=== PATIENT | female | born 1935 | race Asian ===

== ENCOUNTER 2017-01-29 01:30 | Observation (INO) | payer MEDICARE ==
[2017-01-29] MEDS ORDERED: IBUPROFEN 600 MG TABLET PO ONE (02:31)
[2017-01-29] MEDS ORDERED: NORMAL SALINE 1000 ML 1,000 ML IV ONE (02:31)
[2017-01-29 02:38] LABS: ABSOLUTE LYMPHOCYTES (AUTO) 1.3 10^3/uL (0.5-4.7); ABSOLUTE NEUT (AUTO) 9.1 10^3/uL (1.7-8.2); BASOPHILS % (AUTO) 0.4 % (0-2); EOSINOPHILS % (AUTO) 0.1 % (0-6); HEMATOCRIT 39.7 % (36.0-47.0); HEMOGLOBIN 13.8 g/dL (12.0-15.5); HGB HCT DIFFERENCE 1.7; LYMPHOCYTES % (AUTO) 11.5 % (13-45); MEAN CORPUSCULAR HEMOGLOBIN 32.8 pg (27.0-33.4); MEAN CORPUSCULAR HGB CONC 34.8 g/dL (32.0-36.0); MEAN CORPUSCULAR VOLUME 94 fl (80-97); MONOCYTES % (AUTO) 8.7 % (3-13); RED BLOOD COUNT 4.22 10^6/uL (3.72-5.28); RED CELL DISTRIBUTION WIDTH 12.9 % (11.5-14.0); SEGMENTED NEUTROPHILS % (AUTO) 79.3 % (42-78); WHITE BLOOD COUNT 11.5 10^3/uL (4.0-10.5)
[2017-01-29 02:46] LABS: ANION GAP 13 (5-19); BLOOD UREA NITROGEN 14 mg/dL (7-20); CALCIUM 9.4 mg/dL (8.4-10.2); CARBON DIOXIDE 25 mmol/L (22-30); CHLORIDE 101 mmol/L (98-107); CREATININE RESULT 0.65 mg/dL (0.52-1.25); GLUCOSE 192 mg/dL (75-110); SODIUM 138.5 mmol/L (137-145)
--- NOTE | 2017-01-29 02:59 | RADIOLOGY REPORT (SQ) ---
EXAM DESCRIPTION: CHEST SINGLE VIEW COMPLETED DATE/TIME: 01/29/2017 2:46 am REASON FOR STUDY: weakness COMPARISON: 09/11/2014. CT, 06/01/2016. EXAM PARAMETERS: NUMBER OF VIEWS: One view. TECHNIQUE: Single frontal radiographic view of the chest acquired. RADIATION DOSE: NA LIMITATIONS: None. FINDINGS: LUNGS AND PLEURA: Moderate lung volumes. Mild interstitial markings. Small chronic blunt ing of the right costophrenic angle. MEDIASTINUM AND HILAR STRUCTURES: No masses. Contour normal. HEART AND VASCULAR STRUCTURES: Heart normal in size. Normal vasculature. BONES: No acute findings. HARDWARE: None in the chest. OTHER: No other significant finding. IMPRESSION: No acute cardiopulmonary findings. TECHNICAL DOCUMENTATION: JOB ID: [id number]
--- NOTE | 2017-01-29 03:10 | ER Document Report ---
ED General - General Chief Complaint: Pain All Over Stated Complaint: BODY ACHES Time Seen by Provider: 01/29/17 02:25 Notes: 81-year-old female with dementia and arthritis presents brought in by her son for weakness. He states that normally despite her dementia she is able to do laundry sometimes cook but has had drooling appetite over the past few months. This morning we left the house at 9 AM she was on the couch. When he got back at midnight she was on the couch and when he asked, she told him she had not gotten up at all to go to the bathroom or eat. She tells me that food is in appetizing. She does not complain of pain although he said that she was complaining of pain when getting off the couch. He said that she was too weak to stand up today. TRAVEL OUTSIDE OF THE [place] IN LAST 30 DAYS: No - Related Data Allergies/Adverse Reactions: No Known Allergies Allergy (Verified 01/29/17 02:00) Past Medical History - General Information source: Relative - Social History Smoking Status: Never Smoker Drug Abuse: None Family History: Arthritis, Reviewed & Not Pertinent Patient has suicidal ideation: No Patient has homicidal ideation: No - Past Medical History Cardiac Medical History: Denies: Hx Heart Attack, Hx Hypertension Pulmonary Medical History: Denies: Hx Asthma Neurological Medical History: Denies: Hx Cerebrovascular Accident, Hx Seizures Endocrine Medical History: Denies: Hx Graves' Disease, Hx Hyperthyroidism, Hx Hypothyroidism Renal/ Medical History: Denies: Hx End Stage Renal Disease, Hx Kidney Stones, Hx Peritoneal Dialysis GI Medical History: Denies: Hx Hepatitis, Hx Hiatal Hernia, Hx Ulcer Musculoskeltal Medical History: Reports Hx Arthritis - fingers, Denies Hx Fibromyalgia, Denies Hx Muscular Dystrophy, Reports Hx Musculoskeletal Deformity , Reports Hx Musculoskeletal Trauma Traumatic Medical History: Reports: Hx Fractures - as teenager Infectious Medical History: Denies: Hx Hepatitis Past Surgical History: Reports: Hx Orthopedic Surgery - left hip replacement. Denies: Hx Appendectomy, Hx Bowel Surgery, Hx Section, Hx Cholecystectomy, Hx Coronary Artery Bypass Graft, Hx Gastric Bypass Surgery, Hx Herniorrhaphy, Hx Hysterectomy, Hx Mastectomy, Hx Open Heart Surgery, Hx Pacemaker, Hx Tonsillectomy, Hx Tubal Ligation - Immunizations Hx Diphtheria, Pertussis, Tetanus Vaccination: Yes Review of Systems - Review of Systems Notes: REVIEW OF SYSTEMS GEN: Denies fever, chills, weight loss generalized weakness and loss of appetite. ENT: Denies sore throat, nasal discharge, ear pain EYES: Denies blurry vision, eye pain, discharge CV: Denies chest pain, palpitations, edema RESP: Denies cough, shortness of breath, wheezing GI: Denies abdominal pain, nausea, vomiting, diarrhea MSK: Denies joint pain/swelling, edema, SKIN: Denies rash, skin lesions LYMPH: Denies swollen glands/lymph nodes NEURO: Denies headache, focal weakness or numbness, dizziness PSYCH: Denies depression, suicidal or homicidal ideation PHYSICAL EXAMINATION General: No acute distress, well-nourished Head: Atraumatic, normocephalic ENT: Mouth normal, oropharynx moist, no exudates or tonsillar enlargement Eyes: Conjunctiva normal, pupils equal, lids normal Neck: No JVD, supple, no guarding CVS: Normal rate, regular rhythm, no murmurs Resp: No resp distress, equal and normal breath sounds bilaterally GI: Nondistended, soft, no tenderness to palpation, no rebound or guarding Ext: Upper and lower extremities at all joints except for the right fourth proximal interphalangeal joint which is erythematous and swollen, with pain on range of motion. Back: No CVA or midline TTP Skin: No rash, warm Lymphatic: No lymphadeopathy noted Neuro: Awake, alert. Face symmetric. GCS 15. Pronator drift. Physical Exam - Vital signs Vitals: Temp Pulse Resp BP Pulse Ox 98.4 F 88 20 169/63 H 95 01/29/17 02:00 01/29/17 02:00 01/29/17 02:00 01/29/17 02:00 01/29/17 02:00 Course - Re-evaluation Re-evalutation: 01/29/17 02:33 81-year-old female presents with nonspecific generalized weakness for 1 day. She does not appear significantly dehydrated. She has no focal neurologic deficits and appears to be at her neurologic baseline as well as cognitive baseline per her son. She does have a slightly inflamed right third proximal interphalangeal joint the diagnoses of which could reflect acute arthritis including gout or other inflammatory arthritis. This is less likely to be septic arthritis given the small nature of the joint and the patient's lack of fever. I also do not think that this is the cause of her generalized weakness. She could be having worsening dementia or confusion from a UTI or other infection but I will rule out metabolic causes as well. - Vital Signs Vital signs: Temp Pulse Resp BP Pulse Ox 98.4 F 88 12 169/63 H 93 01/29/17 02:00 01/29/17 02:00 01/29/17 02:19 01/29/17 02:00 01/29/17 02:19 - Laboratory Result Diagrams: 01/29/17 02:20 01/29/17 02:20 Laboratory results interpreted by me: 01/29/17 01/29/17 01/29/17 02:20 02:20 04:00 WBC 11.5 H Seg Neutrophils % 79.3 H Lymphocytes % 11.5 L Absolute Neutrophils 9.1 H Glucose 192 H Urine Ketones 20 H Urine Blood SMALL H Ur Leukocyte Esterase SMALL H - EKG Interpretation by Me EKG shows normal: Sinus rhythm Rate: Normal - No acute STST or Twave changes noted Discharge - Discharge Clinical Impression: Weakness Condition: Good Admitting Provider: Hospitalist Unit Admitted: Telemetry Referrals: DOLLY LÓPEZ MD [Primary Care Provider] - Follow up as needed
[2017-01-29] MEDS ORDERED: CEPHALEXIN 500 MG CAPSULE PO ONE (03:55)
[2017-01-29 04:12] LABS: APPEARANCE,URINE SLIGHTLY-CLOUDY; BILIRUBIN,URINE NEGATIVE (NEGATIVE); GLUCOSE, URINE NEGATIVE (NEGATIVE); KETONES,URINE 20 mg/dL (NEGATIVE); LEUKOCYTE ESTERASE,URINE SMALL (NEGATIVE); NITRITE,URINE NEGATIVE (NEGATIVE); PROTEIN,URINE NEGATIVE (NEGATIVE); URINE SPECIFIC GRAVITY 1.018; UROBILINOGEN,URINE NEGATIVE mg/dL (<2.0)
[2017-01-29 05:01] LABS: CREATINE KINASE MB 1.07 ng/mL (<4.55)
[2017-01-29 05:02] LABS: TROPONIN I < 0.012 ng/mL
[2017-01-29] MEDS ORDERED: ACETAMINOPHEN 325 MG TABLET PO PRN (06:30)
[2017-01-29] MEDS ORDERED: ENALAPRIL MALEATE 2.5 MG TABLET PO SCH (06:45)
[2017-01-29] MEDS ORDERED: ENALAPRIL MALEATE 2.5 MG TABLET PO ONE (07:00)
--- NOTE | 2017-01-29 07:49 | EKG REPORT ---
SEVERITY:- BORDERLINE ECG - SINUS RHYTHM BORDERLINE T ABNORMALITIES, DIFFUSE LEADS OLD ANTEROSEPTAL TX : Confirmed by: Fred Quiles MD 29-Jan-2017 07:48:45
[2017-01-29] MEDS ORDERED: PREDNISONE 20 MG TABLET PO SCH (10:00)
[2017-01-29] MEDS ORDERED: ASPIRIN 81 MG TABLET, ENT COATED PO SCH (10:00)
[2017-01-29] MEDS: DOCUSATE SODIUM 100 MG CAPSULE PO SCH ×2 (10:22→18:29)
--- NOTE | 2017-01-29 14:27 | PDOC PROGRESS REPORT ---
Subjective Progress Note for:: 01/29/17 Subjective:: Reports that her weakness has improved. Physical Exam Vital Signs: Temp Pulse Resp BP Pulse Ox 97.8 F 69 15 134/53 H 99 01/29/17 13:23 01/29/17 13:23 01/29/17 13:23 01/29/17 13:23 01/29/17 13:23 Intake & Output 01/28/17 01/29/17 01/30/17 06:59 06:59 06:59 Weight 54.43 kg General appearance: PRESENT: no acute distress Eye exam: PRESENT: conjunctiva pink, EOMI, PERRLA. ABSENT: scleral icterus Ear exam: PRESENT: normal external ear exam Mouth exam: PRESENT: moist, tongue midline Neck exam: ABSENT: JVD Respiratory exam: PRESENT: clear to auscultation precious. ABSENT: rales, rhonchi, wheezes Cardiovascular exam: PRESENT: RRR. ABSENT: diastolic murmur, rubs, systolic murmur GI/Abdominal exam: PRESENT: normal bowel sounds, soft. ABSENT: distended, guarding, mass, organolmegaly, rebound, tenderness Extremities exam: ABSENT: calf tenderness, clubbing, pedal edema Neurological exam: PRESENT: alert, awake, oriented to person, oriented to place , oriented to time, oriented to situation, CN II-XII grossly intact. ABSENT: motor sensory deficit Psychiatric exam: PRESENT: appropriate affect Skin exam: PRESENT: dry, intact, warm. ABSENT: cyanosis, rash Results Impressions: Chest X-Ray 01/29/17 02:26 IMPRESSION: No acute cardiopulmonary findings. Assessment & Plan - Diagnosis (2) Weakness Is this a current diagnosis for this admission?: YesPlan: The related to the recent increase in Aricept. Will hold and see how she does over the next 24 hours. - Time Time Spent with patient: 25-34 minutes
[2017-01-29] MEDS: HEPARIN SOD (PORCINE) 5,000 UNIT/ML 1 ML SYRINGE SUBCUT SCH ×2 (18:22→21:55)
[2017-01-29] MEDS: ENALAPRIL MALEATE 2.5 MG TABLET PO SCH (18:29)
[2017-01-30] MEDS: ENALAPRIL MALEATE 2.5 MG TABLET PO SCH (05:18)
[2017-01-30] MEDS: HEPARIN SOD (PORCINE) 5,000 UNIT/ML 1 ML SYRINGE SUBCUT SCH (05:18)
[2017-01-30 05:38] LABS: MEAN CORPUSCULAR VOLUME 94 fl (80-97)
[2017-01-30 05:50] LABS: ABSOLUTE LYMPHOCYTES (AUTO) 2.2 10^3/uL (0.5-4.7); ABSOLUTE MONOCYTES (AUTO) 0.8 10^3/uL (0.1-1.4); ABSOLUTE NEUT (AUTO) 6.5 10^3/uL (1.7-8.2); BASOPHILS % (AUTO) 0.5 % (0-2); EOSINOPHILS % (AUTO) 0.5 % (0-6); HEMATOCRIT 33.6 % (36.0-47.0); HGB HCT DIFFERENCE 2.1; MEAN CORPUSCULAR HEMOGLOBIN 33.3 pg (27.0-33.4); MEAN CORPUSCULAR HGB CONC 35.5 g/dL (32.0-36.0); MONOCYTES % (AUTO) 8.4 % (3-13); RED BLOOD COUNT 3.58 10^6/uL (3.72-5.28); RED CELL DISTRIBUTION WIDTH 12.8 % (11.5-14.0); SEGMENTED NEUTROPHILS % (AUTO) 67.6 % (42-78); WHITE BLOOD COUNT 9.6 10^3/uL (4.0-10.5)
[2017-01-30 05:52] LABS: HEMOGLOBIN 11.9 g/dL (12.0-15.5)
[2017-01-30 06:07] LABS: ANION GAP 10 (5-19)
[2017-01-30 06:19] LABS: ALANINE AMINOTRANSFERASE 80 U/L (9-52); ALBUMIN 3.2 g/dL (3.5-5.0); ALKALINE PHOSPHATASE 118 U/L (38-126); ASPARTATE AMINO TRANSFERASE 84 U/L (14-36); BILIRUBIN,DIRECT 0.4 mg/dL (0.0-0.4); BILIRUBIN,TOTAL 0.7 mg/dL (0.2-1.3); BLOOD UREA NITROGEN 21 mg/dL (7-20); CALCIUM 8.7 mg/dL (8.4-10.2); CARBON DIOXIDE 24 mmol/L (22-30); CHLORIDE 106 mmol/L (98-107); CREATININE RESULT 0.61 mg/dL (0.52-1.25); GLUCOSE 152 mg/dL (75-110); POTASSIUM 3.8 mmol/L (3.6-5.0); SODIUM 139.7 mmol/L (137-145); TOTAL PROTEIN 6.1 g/dL (6.3-8.2)
[2017-01-30 08:46] VITALS: BP 134/53
--- NOTE | 2017-01-30 13:10 | PDOC DISCHARGE SUMMARY ---
General - Admit/Disc Date/PCP Admission Date/Primary Care Provider: 01/29/17 06:30 DOLLY LÓPEZ MD Discharge Date: 01/30/17 - Discharge Diagnosis (1) Dementia Is this a current diagnosis for this admission?: Yes (2) Weakness Is this a current diagnosis for this admission?: YesSummary: [place] to probably be secondary to the increase in her Aricept. She reports that when she went from 5 to 10 mg her weakness started. Her Weakness has resolved. - Additional Information Resuscitation Status: Full Code Discharge Diet: Regular Discharge Activity: Activity As Tolerated Home Medications: Aspirin [Aspirin EC] 81 mg PO DAILY PRN 01/29/17 Multivitamin [Multivitamins] 1 each PO DAILY 01/29/17 Donepezil HCl [Aricept 5 mg Tablet] 5 mg PO QHS #0 01/30/17 Enalapril Maleate [Vasotec 2.5 mg Tablet] 5 mg PO DAILY #30 tablet 01/30/17 History of Present Illness History of Present Illness: ELAINA STODDARD is a 81 year old female that presented with her son to the emergency room. The patient had worsening weakness for several days prior to presentation. 2 days prior to her symptoms she had seen her primary care doctor and her Aricept was increased from 5-10 mg. Patient presented and had no acute focal findings. Her was stopped and she had resolution of her weakness. She started back on lower dose of Aricept. She does have significant dementia but lives with her son. The patient no evidence for any type of acute neurological event and is felt to most likely be related to her medications. Physical Exam Vital Signs: Temp Pulse Resp BP Pulse Ox 97.5 F 62 14 134/53 H 99 01/30/17 08:43 01/30/17 08:43 01/30/17 08:43 01/30/17 08:43 01/30/17 08:43 Intake & Output 01/29/17 01/30/17 01/31/17 06:59 06:59 06:59 Intake Total 1055 Balance 1055 Weight 55.3 kg General appearance: PRESENT: no acute distress Eye exam: PRESENT: conjunctiva pink. ABSENT: scleral icterus Mouth exam: PRESENT: moist, tongue midline Neck exam: ABSENT: JVD Respiratory exam: PRESENT: clear to auscultation precious. ABSENT: rales, rhonchi, wheezes Cardiovascular exam: PRESENT: RRR. ABSENT: diastolic murmur, rubs, systolic murmur GI/Abdominal exam: PRESENT: normal bowel sounds, soft. ABSENT: distended, guarding, mass, organolmegaly, rebound, tenderness Extremities exam: ABSENT: calf tenderness, clubbing, pedal edema Neurological exam: PRESENT: alert, awake, oriented to person, oriented to place , oriented to time, oriented to situation, CN II-XII grossly intact. ABSENT: motor sensory deficit Psychiatric exam: PRESENT: appropriate affect Skin exam: PRESENT: dry, intact, warm. ABSENT: cyanosis, rash Results Laboratory Results: 01/30/17 05:19 01/30/17 05:19 01/30/17 01/30/17 05:19 05:19 WBC 9.6 RBC 3.58 L Hgb 11.9 L Hct 33.6 L MCV 94 MCH 33.3 MCHC 35.5 RDW 12.8 Plt Count 179 Seg Neutrophils % 67.6 Lymphocytes % 23.0 Monocytes % 8.4 Eosinophils % 0.5 Basophils % 0.5 Absolute Neutrophils 6.5 Absolute Lymphocytes 2.2 Absolute Monocytes 0.8 Absolute Eosinophils 0.0 Absolute Basophils 0.0 Sodium 139.7 Potassium 3.8 Chloride 106 Carbon Dioxide 24 Anion Gap 10 BUN 21 H Creatinine 0.61 Est GFR ( Amer) > 60 Est GFR (Non-Af Amer) > 60 Glucose 152 H Calcium 8.7 Total Bilirubin 0.7 AST 84 H ALT 80 H Alkaline Phosphatase 118 Total Protein 6.1 L Albumin 3.2 L Impressions: Chest X-Ray 01/29/17 02:26 IMPRESSION: No acute cardiopulmonary findings. Qualifiers PATEINT BEING DISCHARGED WITH ANY OF THE FOLLOWING DIAGNOSIS?: No Plan Discharge Plan: Discharged home in stable condition. Will follow up with primary care doctor in 2 weeks. Time Spent: Less than 30 Minutes
== END 2017-01-30 09:06 | disposition home or self-care (01) ==
LOC: ER 01:30 → UNDOADMOB 04:39 → INTOOBSV 04:39 → EH 04:39 → 5 13:06
PROVIDERS: ADMIT Internal Medicine; ATTEND Internal Medicine
DX: R53.1 Weakness (principal); F03.90 Unspecified dementia, unspecified severity, without behavioral disturbance, psychotic disturbance, mood disturbance, and anxiety; M13.849 Other specified arthritis, unspecified hand; Z79.899 Other long term (current) drug therapy; Z79.82 Long term (current) use of aspirin; Z82.61 Family history of arthritis; Z96.642 Presence of left artificial hip joint
CPT/HCPCS: 93005; 99285; 96360; 36415 ×2; 82553; 82550; 84443; 85025 ×2; 85652; 80048; 80053; 81001; 84484; 83880; 71010; 93010; 97162; G0378 ×3; A9270 ×8; J1644 ×2; J7030; G8978; G8979; J3490; J7512

== ENCOUNTER → 2017-02-05 | Outpatient (CLI) | payer MEDICARE ==
[2017-02-05 17:16] LABS: ALANINE AMINOTRANSFERASE 81 U/L (9-52); ALBUMIN 4.2 g/dL (3.5-5.0); ALKALINE PHOSPHATASE 173 U/L (38-126); ASPARTATE AMINO TRANSFERASE 42 U/L (14-36); BILIRUBIN,DIRECT 0.4 mg/dL (0.0-0.4); BILIRUBIN,TOTAL 0.5 mg/dL (0.2-1.3); TOTAL PROTEIN 7.5 g/dL (6.3-8.2)
[2017-02-07 05:40] LABS: HEPATITIS C VIRUS AB <0.1 s/co ratio (0.0-0.9)
== END ==
LOC: OD 15:19
PROVIDERS: ATTEND Internal Medicine
DX: R74.8 Abnormal levels of other serum enzymes (principal); R63.0 Anorexia
CPT/HCPCS: 36415; 80076; 86317; 86803; 86804

== ENCOUNTER 2020-06-21 14:22 | Observation (INO) | payer MEDICARE ==
--- NOTE | 2020-06-21 14:35 | ER Document Report ---
ED Medical Screen (RME) - General Chief Complaint: Altered Mental Status Stated Complaint: ALTERED MENTAL STATUS Time Seen by Provider: 06/21/20 14:27 Primary Care Provider: DOLLY LÓPEZ MD [Primary Care Provider] - Follow up as needed Information source: Patient, Relative Notes: Patient family member states that he found her on the floor this morning and is uncertain how long she may have been on the floor. Patient got up and again fell this this morning. Patient with right knee pain. Family member states that she has been unable to bear weight today. He states that she was mildly confused and that her buttons were buttoned improperly today. Patient does have a history of Alzheimer's although answers questions appropriately in triage. I have greeted and performed a rapid initial assessment of this patient. A comprehensive ED assessment and evaluation of the patient, analysis of test results and completion of the medical decision making process will be conducted by additional ED providers. TRAVEL OUTSIDE OF THE [place] IN LAST 30 DAYS: No - Related Data Allergies/Adverse Reactions: No Known Allergies Allergy (Verified 01/29/17 02:00) Past Medical History - Past Medical History Cardiac Medical History: Denies: Hx Heart Attack, Hx Hypertension Pulmonary Medical History: Denies: Hx Asthma Neurological Medical History: Denies: Hx Cerebrovascular Accident, Hx Seizures Endocrine Medical History: Denies: Hx Graves' Disease, Hx Hyperthyroidism, Hx Hypothyroidism Renal/ Medical History: Denies: Hx End Stage Renal Disease, Hx Kidney Stones, Hx Peritoneal Dialysis GI Medical History: Denies: Hx Hepatitis, Hx Hiatal Hernia, Hx Ulcer Musculoskeltal Medical History: Reports Hx Arthritis, Denies Hx Fibromyalgia, Denies Hx Muscular Dystrophy, Reports Hx Musculoskeletal Deformity, Reports Hx Musculoskeletal Trauma, Denies Hx Systemic Lupus Erythematosus Traumatic Medical History: Reports: Hx Fractures - as teenager Infectious Medical History: Denies: Hx Hepatitis Past Surgical History: Reports: Hx Orthopedic Surgery - left hip replacement. Denies: Hx Appendectomy, Hx Bowel Surgery, Hx Section, Hx Cholecystectomy, Hx Coronary Artery Bypass Graft, Hx Gastric Bypass Surgery, Hx Herniorrhaphy, Hx Hysterectomy, Hx Mastectomy, Hx Open Heart Surgery, Hx Pacemaker, Hx Tonsillectomy, Hx Tubal Ligation - Immunizations Hx Diphtheria, Pertussis, Tetanus Vaccination: Yes Physical Exam - Extremities General lower extremity: Tender - Right knee joint tenderness - Neurological [place] Coma Scale Eye Opening: Spontaneous [place] Coma Scale Verbal: Oriented [place] Coma Scale Motor: Obeys Commands Karel Coma Scale Total: 15 Doctor's Discharge - Discharge Referrals: DOLLY LÓPEZ MD [Primary Care Provider] - Follow up as needed
--- NOTE | 2020-06-21 15:01 | RADIOLOGY REPORT (SQ) ---
EXAM DESCRIPTION: CT HEAD WITHOUT IMAGES COMPLETED DATE/TIME: 06/21/2020 2:51 pm REASON FOR STUDY: fall, epsode of confusion COMPARISON: 06/01/2016 TECHNIQUE: Axial images acquired through the brain without intravenous contrast. Images reviewed wi th bone, brain and subdural windows. Additional sagittal and coronal reconstructions were generated. Images stored on PACS. All CT scanners at this facility use dose modulation, iterative reconstruction, and/or weight based d osing when appropriate to reduce radiation dose to as low as reasonably achievable (ALARA). [facility]: Dose Right [facility]: CareDose [facility]: Dose Right [facility]: Teradose 4D [facility]: Smart [employer] RADIATION DOSE: CT Rad equipment meets quality standard of care and radiation dose reduction techniq ues were employed. CTDIvol: 53.2 mGy. DLP: 1070 mGy-cm.mGy. LIMITATIONS: None. FINDINGS: VENTRICLES: Prominent. CEREBRUM: No masses. No hemorrhage. No midline shift. Areas of low density in the white matter mos t likely due to chronic micro-vascular ischemic change. No evidence for acute infarction. CEREBELLUM: No masses. No hemorrhage. No alteration of density. No evidence for acute infarction. EXTRAAXIAL SPACES: Age-related involutional change. No fluid collections. No masses. ORBITS AND GLOBE: No intra- or extraconal masses. Normal contour of globe without masses. CALVARIUM: No fracture. PARANASAL SINUSES: No fluid or mucosal thickening. SOFT TISSUES: No mass or hematoma. OTHER: No other significant finding. IMPRESSION: CHRONIC CHANGES OF ATROPHY AND MICROVASCULAR ISCHEMIA. NO ACUTE PROCESS. EVIDENCE OF ACUTE STROKE: NO. COMMENT: Pertinent positive or negative findings of the imaging study reported as a CRITICAL EXAM joya CASTELLANOS NP at14:55 on 06/21/2020. Category of Critical Exam: Stroke alert. TECHNICAL DOCUMENTATION: JOB ID: [id number] Quality ID # [id number]: Final reports with documentation of one or more dose reduction techniques (e.g., Au tomated exposure control, adjustment of the mA and/or kV according to patient size, use of iterative reconstruction technique) 2010 [employer]- All Rights Reserved Reading location - IP/workstation name: [email or web address]
--- NOTE | 2020-06-21 15:16 | RADIOLOGY REPORT (SQ) ---
EXAM DESCRIPTION: HIP BILATERAL IMAGES COMPLETED DATE/TIME: 06/21/2020 3:08 pm REASON FOR STUDY: fall pelvic pain COMPARISON: None. NUMBER OF VIEWS: Two views TECHNIQUE: AP pelvis and additional frog-leg view of both hips. LIMITATIONS: None. FINDINGS: MINERALIZATION: Normal. HIPS: Prior total left hip arthroplasty. No acute fracture or dislocation. Joint space narrowing on the right with subchondral sclerosis. No acute fracture or dislocation. PELVIS AND SACRUM: No acute fracture or dislocation. No worrisome bone lesions. PUBIS AND ISCHIUM: No acute fracture. LOWER LUMBAR SPINE: Degenerative changes in the spine. SOFT TISSUES: Vascular calcification. OTHER: No other significant finding. IMPRESSION: Prior total left arthroplasty. Degenerative changes in the right hip with joint space n arrowing and subchondral sclerosis. No acute fracture or dislocation. TECHNICAL DOCUMENTATION: JOB ID: [id number] 2010 [employer]- All Rights Reserved Reading location - IP/workstation name: [email or web address]
--- NOTE | 2020-06-21 15:16 | RADIOLOGY REPORT (SQ) ---
EXAM DESCRIPTION: CHEST SINGLE VIEW IMAGES COMPLETED DATE/TIME: 06/21/2020 3:08 pm REASON FOR STUDY: fall, epsode of confusion COMPARISON: 09/11/2014 EXAM PARAMETERS: NUMBER OF VIEWS: One view. TECHNIQUE: Single frontal radiographic view of the chest acquired. RADIATION DOSE: NA LIMITATIONS: Low lung volumes. FINDINGS: LUNGS AND PLEURA: No opacities, masses or pneumothorax. No pleural effusion. MEDIASTINUM AND HILAR STRUCTURES: No masses. Contour normal. HEART AND VASCULAR STRUCTURES: Heart normal in size. Normal vasculature. BONES: No acute findings. HARDWARE: None in the chest. OTHER: No other significant finding. IMPRESSION: Negative chest allowing for low lung volumes. TECHNICAL DOCUMENTATION: JOB ID: [id number] 2010 [employer]- All Rights Reserved Reading location - IP/workstation name: [email or web address]
--- NOTE | 2020-06-21 15:17 | RADIOLOGY REPORT (SQ) ---
EXAM DESCRIPTION: KNEE RIGHT 4 VIEWS IMAGES COMPLETED DATE/TIME: 06/21/2020 3:08 pm REASON FOR STUDY: fall, r knee pain COMPARISON: None. NUMBER OF VIEWS: Four views. TECHNIQUE: AP, lateral, and both oblique radiographic images acquired of the right knee. LIMITATIONS: None. FINDINGS: MINERALIZATION: Normal. BONES: No acute fracture or dislocation. No worrisome bone lesions. JOINT: Joint space narrowing in all compartments. No joint effusion. SOFT TISSUES: Vascular calcification. OTHER: No other significant finding. IMPRESSION: Tricompartmental osteoarthritis. TECHNICAL DOCUMENTATION: JOB ID: [id number] 2010 [employer]- All Rights Reserved Reading location - IP/workstation name: [email or web address]
--- NOTE | 2020-06-21 15:19 | ER Document Report ---
ED General - General Chief Complaint: Altered Mental Status Stated Complaint: ALTERED MENTAL STATUS Time Seen by Provider: 06/21/20 14:27 Primary Care Provider: DOLLY LÓPEZ MD [EMERITUS] - Follow up as needed Mode of Arrival: Ambulatory Information source: Relative Cannot obtain history due to: Dementia Notes: 84-year-old female presents with her son who is concerned for increased confusion and multiple falls that occurred today. Patient has no complaints at this time. Son reports that the patient was found next to her bed 3 times today. He does report that he is Covid positive but she has had no symptoms. She he does report similar symptoms 6 months ago with a urinary tract infection. TRAVEL OUTSIDE OF THE [place] IN LAST 30 DAYS: No - HPI Onset: This morning Onset/Duration: Sudden Quality of pain: No pain Severity: None Similar symptoms previously: Yes Recently seen / treated by doctor: Yes - Related Data Allergies/Adverse Reactions: No Known Allergies Allergy (Verified 01/29/17 02:00) Home Medications: mirtazapine, memantine Past Medical History - General Information source: Patient, Relative - Social History Smoking Status: Former Smoker Chew tobacco use (# tins/day): No Frequency of alcohol use: None Drug Abuse: None Lives with: Family Family History: Arthritis, Reviewed & Not Pertinent - Past Medical History Cardiac Medical History: Denies: Hx Heart Attack, Hx Hypertension Pulmonary Medical History: Denies: Hx Asthma Neurological Medical History: Denies: Hx Cerebrovascular Accident, Hx Seizures Endocrine Medical History: Denies: Hx Graves' Disease, Hx Hyperthyroidism, Hx Hypothyroidism Renal/ Medical History: Denies: Hx End Stage Renal Disease, Hx Kidney Stones, Hx Peritoneal Dialysis GI Medical History: Denies: Hx Hepatitis, Hx Hiatal Hernia, Hx Ulcer Musculoskeletal Medical History: Reports Hx Arthritis, Denies Hx Fibromyalgia, Denies Hx Muscular Dystrophy, Reports Hx Musculoskeletal Deformity, Reports Hx Musculoskeletal Trauma, Denies Hx Systemic Lupus Erythematosus Traumatic Medical History: Reports: Hx Fractures - as teenager Infectious Medical History: Denies: Hx Hepatitis Past Surgical History: Reports: Hx Orthopedic Surgery - left hip replacement. Denies: Hx Appendectomy, Hx Bowel Surgery, Hx Section, Hx Cholecys tectomy, Hx Coronary Artery Bypass Graft, Hx Gastric Bypass Surgery, Hx Herniorrhaphy, Hx Hysterectomy, Hx Mastectomy, Hx Open Heart Surgery, Hx Pacemaker, Hx Tonsillectomy, Hx Tubal Ligation - Immunizations Hx Diphtheria, Pertussis, Tetanus Vaccination: Yes Review of Systems - Review of Systems -: Yes ROS unobtainable due to patient's medical condition Physical Exam - Vital signs Vitals: Temp 99.1 F 06/21/20 14:28 - Notes Notes: PHYSICAL EXAMINATION: GENERAL: Well-appearing, well-nourished and in no acute distress. HEAD: Atraumatic, normocephalic. EYES: Pupils equal round and reactive to light, extraocular movements intact, conjunctiva are normal. ENT: Nares patent, oropharynx clear without exudates. Moist mucous membranes. NECK: Normal range of motion, supple without lymphadenopathy LUNGS: Breath sounds clear to auscultation bilaterally and equal. No wheezes rales or rhonchi. HEART: Regular rate and rhythm without murmurs ABDOMEN: Soft, nontender, nondistended abdomen. No guarding, no rebound. No masses appreciated. Female : deferred Musculoskeletal: Normal range of motion, no pitting or edema. No cyanosis. mild swelling to left knee FROM NEUROLOGICAL: Cranial nerves grossly intact. Normal speech, normal gait. Normal sensory, motor exams. AOx2 PSYCH: Normal mood, normal affect. SKIN: Warm, Dry, normal turgor, no rashes or lesions noted. Course - Re-evaluation Re-evalutation: 06/21/20 16:52 Laboratory 06/21/20 06/21/20 06/21/20 15:43 15:43 15:43 WBC 8.7 RBC 4.15 Hgb 12.9 Hct 37.6 MCV 91 MCH 31.1 MCHC 34.4 RDW 13.0 Plt Count 215 Lymph % (Auto) Not Reportable [place] % (Auto) Not Reportable Eos % (Auto) Not Reportable Baso % (Auto) Not Reportable Absolute Neuts (auto) Not Reportable Absolute Lymphs (auto) Not Reportable Absolute Monos (auto) Not Reportable Absolute Eos (auto) Not Reportable Absolute Basos (auto) Not Reportable Total Counted 100 Seg Neutrophils % Not Reportable Seg Neuts % (Manual) 86 H Band Neutrophils % 2 L Lymphocytes % (Manual) 3 L Monocytes % (Manual) 9 Eosinophils % (Manual) 0 Basophils % (Manual) 0 Abs Neuts (Manual) 7.7 Abs Lymphs (Manual) 0.3 L Abs Monocytes (Manual) 0.8 Absolute Eos (Manual) 0.0 Abs Basophils (Manual) 0.0 Platelet Comment ADEQUATE RBC Morph Comment NORMO-CYTIC/CHROMIC PT 12.6 INR 0.92 APTT 30.3 Sodium 134.0 L Potassium 4.5 Chloride 97 L Carbon Dioxide 28 Anion Gap 9 BUN 13 Creatinine 0.58 Est GFR ( Amer) > 60 Est GFR (MDRD) Non-Af > 60 Glucose 176 H Calcium 9.1 Total Bilirubin 0.6 Direct Bilirubin 0.1 Neonat Total Bilirubin Not Reportable Neonat Direct Bilirubin Not Reportable Neonat Indirect Bili Not Reportable AST 106 H ALT 94 H Alkaline Phosphatase 136 H Creatine Kinase 430 H Troponin I Total Protein 8.1 Albumin 4.4 Urine Color Urine Appearance Urine pH Ur Specific [place] Urine Protein Urine Glucose (UA) Urine Ketones Urine Blood Urine Nitrite Urine Bilirubin Urine Urobilinogen Ur Leukocyte Esterase Urine WBC (Auto) Urine RBC (Auto) U Hyaline Cast (Auto) Urine Mucus (Auto) Urine Ascorbic Acid 06/21/20 06/21/20 15:43 16:10 WBC RBC Hgb Hct MCV MCH MCHC RDW Plt Count Lymph % (Auto) [place] % (Auto) Eos % (Auto) Baso % (Auto) Absolute Neuts (auto) Absolute Lymphs (auto) Absolute Monos (auto) Absolute Eos (auto) Absolute Basos (auto) Total Counted Seg Neutrophils % Seg Neuts % (Manual) Band Neutrophils % Lymphocytes % (Manual) Monocytes % (Manual) Eosinophils % (Manual) Basophils % (Manual) Abs Neuts (Manual) Abs Lymphs (Manual) Abs Monocytes (Manual) Absolute Eos (Manual) Abs Basophils (Manual) Platelet Comment RBC Morph Comment PT INR APTT Sodium Potassium Chloride Carbon Dioxide Anion Gap BUN Creatinine Est GFR ( Amer) Est GFR (MDRD) Non-Af Glucose Calcium Total Bilirubin Direct Bilirubin Neonat Total Bilirubin Neonat Direct Bilirubin Neonat Indirect Bili AST ALT Alkaline Phosphatase Creatine Kinase Troponin I < 0.012 Total Protein Albumin Urine Color YELLOW Urine Appearance SLIGHTLY-CLOUDY Urine pH 7.0 Ur Specific [place] 1.020 Urine Protein 100 H Urine Glucose (UA) NEGATIVE Urine Ketones 20 H Urine Blood NEGATIVE Urine Nitrite NEGATIVE Urine Bilirubin NEGATIVE Urine Urobilinogen NEGATIVE Ur Leukocyte Esterase NEGATIVE Urine WBC (Auto) 1 Urine RBC (Auto) 12 U Hyaline Cast (Auto) 3 Urine Mucus (Auto) MOD Urine Ascorbic Acid 40 H Chest X-Ray 06/21/20 14:31 IMPRESSION: Negative chest allowing for low lung volumes. Head CT 06/21/20 14:31 IMPRESSION: CHRONIC CHANGES OF ATROPHY AND MICROVASCULAR ISCHEMIA. NO ACUTE PROCESS. EVIDENCE OF ACUTE STROKE: NO. Hip X-Ray 06/21/20 14:31 IMPRESSION: Prior total left arthroplasty. Degenerative changes in the right hip with joint space narrowing and subchondral sclerosis. No acute fracture or dislocation. Knee X-Ray 06/21/20 14:31 IMPRESSION: Tricompartmental osteoarthritis. Temp Pulse Resp BP Pulse Ox 99.1 F 115 H 16 157/71 H 98 06/21/20 14:39 06/21/20 16:08 06/21/20 16:08 06/21/20 16:08 06/21/20 16:08 06/21/20 20:14 Hospitalist contacted for admission. We will see the patient at bedside 06/21/20 21:35 84-year-old female presents with her son who is concerned for increased confusion and multiple falls that occurred today. Patient has no complaints at this time. Son reports that the patient was found next to her bed 3 times today. He does report that he is Covid positive but she has had no symptoms. She he does report similar symptoms 6 months ago with a urinary tract infection. Patient tachycardic upon arrival but afebrile and not hypoxic. Patient found to be Covid positive. No evidence of urinary tract infection. Attempted discharge but when patient attempted to ambulate she was not able to. [facility]osp [facility] has accepted the patient for observation. - Vital Signs Vital signs: Temp Pulse Resp BP Pulse Ox 99.1 F 115 H 22 H 149/59 H 97 06/21/20 14:39 06/21/20 16:08 06/21/20 19:01 06/21/20 19:01 06/21/20 19:01 - Laboratory Results Result Diagrams: 06/21/20 15:43 06/21/20 15:43 Laboratory Results Interpreted: 06/21/20 06/21/20 06/21/20 15:43 15:43 16:10 Seg Neuts % (Manual) 86 H Band Neutrophils % 2 L Lymphocytes % (Manual) 3 L Abs Lymphs (Manual) 0.3 L Sodium 134.0 L Chloride 97 L Glucose 176 H AST 106 H ALT 94 H Alkaline Phosphatase 136 H Creatine Kinase 430 H Urine Protein 100 H Urine Ketones 20 H Urine Ascorbic Acid 40 H SARS-CoV-2 Rap RNA(RT-PCR) 06/21/20 17:05 Seg Neuts % (Manual) Band Neutrophils % Lymphocytes % (Manual) Abs Lymphs (Manual) Sodium Chloride Glucose AST ALT Alkaline Phosphatase Creatine Kinase Urine Protein Urine Ketones Urine Ascorbic Acid SARS-CoV-2 Rap RNA(RT-PCR) POSITIVE H Critical Laboratory Results Reviewed: Yes Attending or Supervising Physician who Reviewed Labs: TANIYA TORRES - Radiology Results Critical Radiology Results Reviewed: No Critical Results Discharge - Discharge Clinical Impression: Weakness, Dehydration, COVID-19 Dementia Qualifiers: Dementia type: Alzheimer's disease Alzheimer's disease onset: unspecified onset Dementia behavioral disturbance: without behavioral disturbance Qualified Cod e(s): G30.9 - Alzheimer's disease, unspecified Condition: Good Disposition: ADMITTED OBSERVATION Admitting Provider: Dustin (Hospitalist) Unit Admitted: Medical Floor Instructions: COVID-19 Guidance for Persons Under Investigation, Dehydration ([facility]) Additional Instructions: YOur mother was positive for Covid. At this time she is not requiring oxygen or appears to have a secondary infection. she must remain isolated for two weeks. Please bring her back to ER if she has difficulty breathing or any other symptoms concerning to you. Please be sure to drink plenty of fluids while out in the heat. You can purchase packets of electrolyte replacement solutions such as Pedialyte or propel that you can add to plain water. This will help to make sure that you are getting adequate electrolytes in addition to fluids while working outside. Please return to the emergency department if you pass out, developed diffuse muscle cramping, have persistent vomiting, or have any other symptoms that are worrisome to you. Follow up with your [id number] hours for further care or return to the ED IMMEDIATELY if symptoms worsen or you have any concerns. If you cannot afford to follow up with your primary care physician a list of low cost clinics have been provided at the end of your discharge papers as well. Most prescribed medications have multiple side effects. The safest thing to do is when filling your prescription speak to your pharmacist regarding possible interactions with your normal home medications and over the counter medications such as Ibuprofen, Tylenol, Benadryl. If you experience any symptoms that cause you discomfort or concern you should discontinue the medication immediately and return to the emergency room or call your primary care physician. Referrals: DOLLY LÓPEZ MD [EMERITUS] - Follow up as needed
[2020-06-21] MEDS ORDERED: RINGERS SOLUTION,LACTATED 1,000 ML IV ONE ×2 (15:46→17:51)
[2020-06-21 15:58] LABS: INTERNATIONAL RATION (INR) 0.92; PROTHROMBIN TIME 12.6 SEC (11.4-15.4)
[2020-06-21 15:59] LABS: PARTIAL THROMBOPLASTIN TIME 30.3 SEC (23.5-35.8)
[2020-06-21 16:04] LABS: HEMATOCRIT 37.6 % (36.0-47.0); HEMOGLOBIN 12.9 g/dL (12.0-15.5); MEAN CORPUSCULAR HEMOGLOBIN 31.1 pg (27.0-33.4); MEAN CORPUSCULAR HGB CONC 34.4 g/dL (32.0-36.0); MEAN CORPUSCULAR VOLUME 91 fl (80-97); PLATELET COUNT 215 10^3/uL (150-450); RED BLOOD COUNT 4.15 10^6/uL (3.72-5.28); WHITE BLOOD COUNT 8.7 10^3/uL (4.0-10.5)
[2020-06-21 16:15] LABS: ALBUMIN 4.4 g/dL (3.5-5.0); ALKALINE PHOSPHATASE 136 U/L (38-126); ANION GAP 9 (5-19); ASPARTATE AMINO TRANSFERASE 106 U/L (14-36); BILIRUBIN,DIRECT 0.1 mg/dL (0.0-0.4); BILIRUBIN,TOTAL 0.6 mg/dL (0.2-1.3); BLOOD UREA NITROGEN 13 mg/dL (7-20); CALCIUM 9.1 mg/dL (8.4-10.2); CARBON DIOXIDE 28 mmol/L (22-30); CHLORIDE 97 mmol/L (98-107); CREATINE KINASE 430 U/L (30-135); GLUCOSE 176 mg/dL (75-110); POTASSIUM 4.5 mmol/L (3.6-5.0); TOTAL PROTEIN 8.1 g/dL (6.3-8.2)
[2020-06-21 16:29] LABS: ABSOLUTE LYMPHOCYTES# (MANUAL) 0.3 10^3/uL (0.5-4.7); ABSOLUTE MONOCYTES # (MANUAL) 0.8 10^3/uL (0.1-1.4); BAND NEUTROPHILS % (MANUAL) 2 % (3-5); BASOPHILS % (MANUAL) 0 % (0-2); EOSINOPHILS % (MANUAL) 0 % (0-6); LYMPHOCYTES % (MANUAL) 3 % (13-45); MONOCYTES % (MANUAL) 9 % (3-13); PLATELET COMMENT ADEQUATE; RBC MORPHOLOGY COMMENT NORMO-CYTIC/CHROMIC; SEGMENTED NEUTROPHILS % (MAN) 86 % (42-78); TOTAL CELLS COUNTED 100
[2020-06-21 16:32] LABS: APPEARANCE,URINE SLIGHTLY-CLOUDY; BILIRUBIN,URINE NEGATIVE (NEGATIVE); COLOR,URINE YELLOW; GLUCOSE, URINE NEGATIVE (NEGATIVE); KETONES,URINE 20 mg/dL (NEGATIVE); LEUKOCYTE ESTERASE,URINE NEGATIVE (NEGATIVE); NITRITE,URINE NEGATIVE (NEGATIVE); PROTEIN,URINE 100 mg/dL (NEGATIVE); UROBILINOGEN,URINE NEGATIVE mg/dL (<2.0)
--- NOTE | 2020-06-21 19:07 | EKG REPORT ---
SEVERITY:- BORDERLINE ECG - SINUS TACHYCARDIA BORDERLINE T ABNORMALITIES, ANTERIOR LEADS : Confirmed by: Fred Quiles MD 21-Jun-2020 19:06:34
[2020-06-21] MEDS ORDERED: ONDANSETRON HCL INJ/PF 4 MG/2 ML SDV IV PRN (21:57)
[2020-06-21] MEDS ORDERED: ACETAMINOPHEN 325 MG TABLET PO PRN (21:57)
[2020-06-21] MEDS ORDERED: IPRATROPIUM/ALBUTEROL 0.5-2.5 MG/3 ML AMPUL NEB PRN (21:57)
[2020-06-21] MEDS ORDERED: DEXTROSE 5%-1/2 NORMAL SALINE 1,000 ML IV PRN (21:57)
[2020-06-21] MEDS ORDERED: PROMETHAZINE HCL INJ 25 MG/1 ML VIAL IV PRN (21:57)
[2020-06-21] MEDS ORDERED: TEMAZEPAM 7.5 MG CAPSULE PO PRN (21:57)
[2020-06-21] MEDS ORDERED: MAG HYDROX/AL HYDROX/SIMETH SUSP 30 ML UDCUP PO PRN (21:57)
[2020-06-21] MEDS ORDERED: MAGNESIUM HYDROXIDE SUSP 30 ML UDCUP PO PRN (21:57)
[2020-06-21] MEDS ORDERED: OXYCODONE-ACETAMINOPHEN 5-325 MG TABLET PO PRN (21:57)
[2020-06-21] MEDS ORDERED: METOPROLOL TARTRATE PF/INJ 5 MG/5 ML SDV IV PRN (22:15)
[2020-06-21] MEDS ORDERED: HYDRALAZINE HCL INJ/PF 20 MG/1 ML SDV IV PRN (22:15)
[2020-06-21 22:42] LABS: D-DIMER 0.95 ug/mL (0.00-0.50)
[2020-06-21 23:08] LABS: D-DIMER 0.91 ug/mL (0.00-0.50)
[2020-06-21 23:25] LABS: C-REACTIVE PROTEIN 17.6 mg/L (<10.0)
[2020-06-21] MEDS: MIRTAZAPINE 15 MG TABLET PO SCH (23:36)
[2020-06-21] MEDS: FAMOTIDINE 20 MG TABLET PO SCH (23:37)
[2020-06-21] MEDS: HEPARIN SOD (PORCINE) 5,000 UNIT/ML 1 ML VIAL SUBCUT SCH (23:37)
--- NOTE | 2020-06-22 00:55 | PDOC H&P ---
History of Present Illness Admission Date/PCP: 06/21/20 21:44 History of Present Illness: ELAINA STODDARD is a 84 year old female past medical history of dementia who was recently diagnosed with COVID-19 infection brought to ED by her son after multiple falls on the day of admission. As per son who is present in the room and is the source of history as patient does not speak [place], he is stating that at baseline patient has dementia but is ambulating without any problem and feeding and bathing herself, this morning when patient's son woke up did not see her mother in the kitchen as usual ,went to look for her found her laying next to the bed, as per son patient was awake and alert did not seem to have sustained any trauma, but did not provide any information as patient has dementia, as per patient's son she may have had been laying on the floor for several hours, patient was picked up by son and later again was found on the floor again with no sign of trauma and patient was noted to be awake and alert, this happened a third time without any apparent cause as none of the falls were witnessed by the son, and patient could not provide any history why she was falling, patient was also noted to be more confused than her baseline however had not sustained any head trauma and had lost consciousness, patient was not noted to have had loss of bowel or bladder control or any tongue biting. As per son patient is pretty healthy and does not have any history of seizure d isorder, history of CVA, CAD, arrhythmia or any history of previous falls. Patient was recently diagnosed with COVID-19 however appears to be asymptomatic save for mild cough and lower than normal appetite. On my encounter patient is comfortable resting in bed on room air is does not appear to be in any apparent distress, denies any shortness of breath, fever, chills, nausea, vomiting, diarrhea, constipation or any urinary symptoms. In ED patient was noted to have mild tachypnea and tachycardia otherwise saturating WNL on room air, CT head was negative for any acute abnormalities, and chest x-ray was also negative for any acute changes, EKG was negative and troponins undetectable. Patient was noted to have mildly elevated liver chemistries and CK repeat COVID-19 came back positive. Hospitalist was consulted for admission. Past Medical History Cardiac Medical History: Denies: Myocardial Infarction, Hypertension Pulmonary Medical History: Denies: Asthma Neurological Medical History: Denies: Seizures Endocrine Medical History: Denies: Hyperthyroidism, Hypothyroidism Renal/ Medical History: Denies: End Stage Renal Disease GI Medical History: Denies: Hepatitis, Hiatal Hernia Musculoskeltal Medical History: Reports: Arthritis Denies: Fibromyalgia Hematology: Denies: Anemia, Sickle Cell Disease Past Surgical History Past Surgical History: Reports: Orthopedic Surgery - left hip replacement Denies: Amputation, Appendectomy, Section, Cholecystectomy, Coronary Artery Bypass Graft, Gastric Bypass Surgery, Herniorrhaphy, Hysterectomy, Mastectomy, Pacemaker, Tonsillectomy, Tubal Ligation Social History Lives with: Family Smoking Status: Former Smoker Electronic Cigarette use?: No Last Time Smoked: 30+ YEARS Frequency of Alcohol Use: None Hx Recreational Drug Use: No Hx Prescription Drug Abuse: No Family History Family History: Arthritis, Reviewed & Not Pertinent Parental Family History Reviewed: Yes Children Family History Reviewed: Yes Sibling(s) Family History Reviewed.: Yes Medication/Allergy Home Medications: Memantine HCl 10 mg PO BID 06/21/20 Mirtazapine 7.5 mg PO QHS 06/21/20 Allergies/Adverse Reactions: No Known Allergies Allergy (Verified 01/29/17 02:00) Review of Systems Review of Systems: as per hpi Physical Exam Vital Signs: Temp Pulse Resp BP Pulse Ox 99.1 F 115 H 16 149/59 H 96 06/21/20 14:39 06/21/20 16:08 06/21/20 22:00 06/21/20 19:01 06/21/20 22:00 Intake & Output 06/20/20 06/21/20 06/22/20 06:59 06:59 06:59 Intake Total 1999 Balance 1999 Weight 56 kg General appearance: PRESENT: no acute distress, well-developed, well-nourished Head exam: PRESENT: atraumatic, normocephalic Respiratory exam: PRESENT: clear to auscultation precious. ABSENT: rales, rhonchi, wheezes Cardiovascular exam: PRESENT: RRR. ABSENT: diastolic murmur, rubs, systolic murmur Pulses: PRESENT: normal dorsalis pedis pul GI/Abdominal exam: PRESENT: normal bowel sounds, soft. ABSENT: distended, guarding, mass, organolmegaly, rebound, tenderness Extremities exam: PRESENT: full ROM, tenderness - Bilateral knee tenderness. No erythema or sign of infection or fusion.. ABSENT: calf tenderness, clubbing, pedal edema Neurological exam: PRESENT: alert, awake, oriented to person, CN II-XII grossly intact. ABSENT: motor sensory deficit Skin exam: PRESENT: dry, intact, warm. ABSENT: cyanosis, rash Results Laboratory Results: 06/21/20 15:43 06/21/20 15:43 06/21/20 06/21/20 06/21/20 15:43 15:43 16:10 WBC 8.7 RBC 4.15 Hgb 12.9 Hct 37.6 MCV 91 MCH 31.1 MCHC 34.4 RDW 13.0 Plt Count 215 Seg Neutrophils % Not Reportable Sodium 134.0 L Potassium 4.5 Chloride 97 L Carbon Dioxide 28 Anion Gap 9 BUN 13 Creatinine 0.58 Est GFR ( Amer) > 60 Glucose 176 H Calcium 9.1 Total Bilirubin 0.6 AST 106 H Alkaline Phosphatase 136 H C-Reactive Protein Total Protein 8.1 Albumin 4.4 Urine Color YELLOW Urine Appearance SLIGHTLY-CLOUDY Urine pH 7.0 Ur Specific [place] 1.020 Urine Protein 100 H Urine Glucose (UA) NEGATIVE Urine Ketones 20 H Urine Blood NEGATIVE Urine Nitrite NEGATIVE Ur Leukocyte Esterase NEGATIVE Urine WBC (Auto) 1 Urine RBC (Auto) 12 06/21/20 22:50 WBC RBC Hgb Hct MCV MCH MCHC RDW Plt Count Seg Neutrophils % Sodium Potassium Chloride Carbon Dioxide Anion Gap BUN Creatinine Est GFR ( Amer) Glucose Calcium Total Bilirubin AST Alkaline Phosphatase C-Reactive Protein 17.6 H Total Protein Albumin Urine Color Urine Appearance Urine pH Ur Specific [place] Urine Protein Urine Glucose (UA) Urine Ketones Urine Blood Urine Nitrite Ur Leukocyte Esterase Urine WBC (Auto) Urine RBC (Auto) 06/21/20 06/21/20 15:43 15:43 Creatine Kinase 430 H Troponin I < 0.012 Impressions: Chest X-Ray 06/21/20 14:31 IMPRESSION: Negative chest allowing for low lung volumes. Head CT 06/21/20 14:31 IMPRESSION: CHRONIC CHANGES OF ATROPHY AND MICROVASCULAR ISCHEMIA. NO ACUTE PROCESS. EVIDENCE OF ACUTE STROKE: NO. Hip X-Ray 06/21/20 14:31 IMPRESSION: Prior total left arthroplasty. Degenerative changes in the right hip with joint space narrowing and subchondral sclerosis. No acute fracture or dislocation. Knee X-Ray 12/23/20 14:31 IMPRESSION: Tricompartmental osteoarthritis. Assessment and Plan - Diagnosis (1) Fall Qualifiers: Encounter type: initial encounter Qualified Code(s): W19.XXXA - Unspecified fall, initial encounter Is this a current diagnosis for this admission?: Yes Plan: Patient had 3 unwitnessed falls at home on the day of admission. Unfortunately does not provide any information due to advanced dementia. As per son who found her on the floor each time patient was awake and alert and did not appear to have had any head trauma. EKG WNL, SPO2 WNL, CT head negative. Likely cause of fall was generalized weakness due to underlying COVID-19 infection. We will admit to telemetry for overnight observation, will consult PT OT, implement fall and seizure precautions. (2) COVID-19 Is this a current diagnosis for this admission?: Yes Plan: Patient was recently diagnosed with COVID-19 infection, likely source her son. Repeat COVID-19 serology is still positive. Patient is asymptomatic except for mild productive cough. SPO2 WNL on RA, CXR no acute abnormalities. CBC WNL except for lymphopenia and bandemia. Mildly elevated D-dimer Mildly elevated liver chemistries. Elevated CRP. Continue supplemental oxygen, as needed DuoNeb, flutter valve and pulmonary toileting. No need for empiric IV antibiotics, steroids or therapeutic dose anticoagulation at this point. If patient becomes more symptomatic will consider above-mentioned treatments. (3) Dementia Qualifiers: Dementia type: Alzheimer's disease Alzheimer's disease onset: unspecified onset Dementia behavioral disturbance: without behavioral disturbance Qualified Code(s): G30.9 - Alzheimer's disease, unspecified; F02.80 - Dementia in other diseases classified elsewhere without behavioral disturbance Is this a current diagnosis for this admission?: Yes Plan: Home medications memantine. Resume home meds. Supportive measures. Monitor for sundowning. (4) Weakness Is this a current diagnosis for this admission?: Yes Plan: Likely due to underlying COVID-19 infection. PT OT. May likely benefit from home health and home PT. - Time Time Spent with patient: 35 or more minutes Anticipated Discharge Disposition: Home with Home Health Anticipated Discharge Timeframe: within 48 hours
[2020-06-22] MEDS ORDERED: LABETALOL HCL INJ 20 MG/4 ML DISP.SYRIN IV PRN (03:59)
[2020-06-22] MEDS: HEPARIN SOD (PORCINE) 5,000 UNIT/ML 1 ML VIAL SUBCUT SCH ×3 (05:31→22:40)
[2020-06-22 05:51] LABS: ALBUMIN 3.3 g/dL (3.5-5.0); ALKALINE PHOSPHATASE 104 U/L (38-126); ANION GAP 8 (5-19); ASPARTATE AMINO TRANSFERASE 67 U/L (14-36); BILIRUBIN,TOTAL 0.5 mg/dL (0.2-1.3); BLOOD UREA NITROGEN 10 mg/dL (7-20); CALCIUM 8.2 mg/dL (8.4-10.2); CARBON DIOXIDE 25 mmol/L (22-30); CHLORIDE 98 mmol/L (98-107); GLUCOSE 180 mg/dL (75-110); POTASSIUM 3.8 mmol/L (3.6-5.0); TOTAL PROTEIN 6.1 g/dL (6.3-8.2)
[2020-06-22] MEDS: MEMANTINE HCL 10 MG TABLET PO SCH ×2 (09:38→17:27)
[2020-06-22] MEDS: ASCORBIC ACID 500 MG TABLET PO SCH ×2 (09:38→17:26)
[2020-06-22] MEDS: FAMOTIDINE 20 MG TABLET PO SCH ×2 (09:38→22:40)
[2020-06-22] MEDS: ZINC SULFATE 220 MG CAPSULE PO SCH (09:38)
[2020-06-22] MEDS: ASPIRIN 81 MG TABLET, ENT COATED PO SCH (09:39)
[2020-06-22] MEDS: CHOLECALCIFEROL (D3) 1,000 UNIT (25 MCG) TABLET PO SCH (09:39)
[2020-06-22] MEDS ORDERED: LORAZEPAM INJ 2 MG/1 ML VIAL IV ONE ×2 (15:00→17:45)
[2020-06-22] MEDS ORDERED: HALOPERIDOL LACTATE INJ 5 MG/1 ML VIAL IV ONE ×2 (15:00→17:45)
[2020-06-22 16:04] LABS: OSMOLALITY,URINE 526 mOsm/kg (300-900)
[2020-06-22 16:09] LABS: URINE SODIUM 165 mmol/L (30-90)
--- NOTE | 2020-06-22 17:02 | PDOC PROGRESS REPORT ---
Subjective Date:: 06/22/20 Subjective:: ELAINA STODDARD is a 84 year old female past medical history of dementia who w as recently diagnosed with COVID-19 infection brought to ED by her son after multiple falls on the day of admission. As per son who is present in the room and is the source of history as patient does not speak [place], he is stating that at baseline patient has dementia but is ambulating without any problem and feeding and bathing herself, this morning when patient's son woke up did not see her mother in the kitchen as usual ,went to look for her found her laying next to the bed, as per son patient was awake and alert did not seem to have sustained any trauma, but did not provide any information as patient has dementia, as per patient's son she may have had been laying on the floor for several hours, patient was picked up by son and later again was found on the floor again with no sign of trauma and patient was noted to be awake and alert, this happened a third time without any apparent cause as none of the falls were witnessed by the son, and patient could not provide any history why she was falling, patient was also noted to be more confused than her baseline however had not sustained any head trauma and had lost consciousness, patient was not noted to have had loss of bowel or bladder control or any tongue biting. As per son patient is pretty healthy and does not have any history of seizure disorder, history of CVA, CAD, arrhythmia or any history of previous falls. Patient was recently diagnosed with COVID-19 however appears to be asymptomatic save for mild cough and lower than normal appetite. On my encounter patient is comfortable resting in bed on room air is does not appear to be in any apparent distress, denies any shortness of breath, fever, chills, nausea, vomiting, diarrhea, constipation or any urinary symptoms. In ED patient was noted to have mild tachypnea and tachycardia otherwise saturating WNL on room air, CT head was negative for any acute abnormalities, and chest x-ray was also negative for any acute changes, EKG was negative and troponins undetectable. Patient was noted to have mildly elevated liver chemistries and CK repeat COVID-19 came back positive. Hospitalist was consulted for admission. D2 of hospital stay 06/22/20 Patient was seen and examined at bedside. She is off O2 and is not SOB. She is confused and agitated as can be expected from her dementia and new surroundings. 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 Besides dementia she has no prior significant PMH, no previous stroke, no known psychiatric condition. I have ordered an MRI brain. PT has yet to see her. Reason For Visit: FALL,COVID 19 Physical Exam Vital Signs: Temp Pulse Resp BP Pulse Ox 98.9 F 94 16 141/61 H 100 06/22/20 11:37 06/22/20 12:14 06/22/20 12:14 06/22/20 11:37 06/22/20 12:14 Intake & Output 06/21/20 06/22/20 06/23/20 06:59 06:59 06:59 Intake Total 2000 709 Output Total 100 Balance 1900 709 Weight 44.1 kg General appearance: PRESENT: no acute distress, thin Head exam: PRESENT: atraumatic, normocephalic Eye exam: PRESENT: EOMI, PERRLA Mouth exam: PRESENT: moist Neck exam: PRESENT: full ROM Respiratory exam: PRESENT: clear to auscultation precious, symmetrical, unlabored Cardiovascular exam: PRESENT: RRR, +S1, +S2 Pulses: PRESENT: +2 pedal pulses bilateral GI/Abdominal exam: PRESENT: normal bowel sounds, soft. ABSENT: rebound, tenderness Extremities exam: PRESENT: full ROM Musculoskeletal exam: PRESENT: full ROM Neurological exam: PRESENT: alert, awake, other - Has baseline dementia. ABSENT: oriented to person, oriented to place, oriented to time, oriented to situation Psychiatric exam: PRESENT: normal mood Skin exam: PRESENT: normal color Results Laboratory Results: 06/21/20 15:43 06/22/20 04:52 06/21/20 06/21/20 06/22/20 16:10 22:50 04:52 Sodium 130.7 L Potassium 3.8 Chloride 98 Carbon Dioxide 25 Anion Gap 8 BUN 10 Creatinine 0.53 Est GFR ( Amer) > 60 Glucose 180 H Serum Osmolality Calcium 8.2 L Total Bilirubin 0.5 AST 67 H Alkaline Phosphatase 104 C-Reactive Protein 17.6 H Total Protein 6.1 L Albumin 3.3 L Urine Osmolality 707 06/22/20 06/22/20 04:52 09:50 Sodium Potassium Chloride Carbon Dioxide Anion Gap BUN Creatinine Est GFR ( Amer) Glucose Serum Osmolality 277 Calcium Total Bilirubin AST Alkaline Phosphatase C-Reactive Protein Total Protein Albumin Urine Osmolality 526 06/21/20 06/21/20 15:43 15:43 Creatine Kinase 430 H Troponin I < 0.012 Impressions: Chest X-Ray 06/21/20 14:31 IMPRESSION: Negative chest allowing for low lung volumes. Head CT 06/21/20 14:31 IMPRESSION: CHRONIC CHANGES OF ATROPHY AND MICROVASCULAR ISCHEMIA. NO ACUTE PROCESS. EVIDENCE OF ACUTE STROKE: NO. Hip X-Ray 06/21/20 14:31 IMPRESSION: Prior total left arthroplasty. Degenerative changes in the right hip with joint space narrowing and subchondral sclerosis. No acute fracture or dislocation. Knee X-Ray 06/21/20 14:31 IMPRESSION: Tricompartmental osteoarthritis. Assessment and Plan - Diagnosis (1) Recurrent falls Is this a current diagnosis for this admission?: Yes Plan: - has had 3 episodes of unwitnessed presumed falls - has dementia but no prior hx of stroke, seizure episodes - CT head negative and CBC and CMP are normal - tele review no signs of bradycardia or arrhythmia that will cause her to develop syncope - MRI brain - checking B12 and RPR - PT/OT ordered to assess gait and muscle strength (2) COVID-19 Is this a current diagnosis for this admission?: Yes Plan: Patient was recently diagnosed with COVID-19 infection, likely source her son. Repeat COVID-19 serology is still positive. Patient is asymptomatic except for mild productive cough. SPO2 WNL on RA, CXR no acute abnormalities. CBC WNL except for lymphopenia and bandemia. Mildly elevated D-dimer Mildly elevated liver chemistries. Elevated CRP. as needed DuoNeb, flutter valve and pulmonary toileting. No need for empiric IV antibiotics, steroids or therapeutic dose anticoagulation at this point. If patient becomes more symptomatic will consider above-mentioned treatments. (3) Dementia Qualifiers: Dementia type: Alzheimer's disease Alzheimer's disease onset: unspecified onset Dementia behavioral disturbance: without behavioral disturbance Q ualified Code(s): G30.9 - Alzheimer's disease, unspecified; F02.80 - Dementia in other diseases classified elsewhere without behavioral disturbance Is this a current diagnosis for this admission?: Yes Plan: Home medications memantine. Resume home meds. Supportive measures. Monitor for sundowning. would limit sedating meds and avoid restraints as this can worsen her agitation. - Time Time Spent with patient: 25-34 minutes Medications reviewed and adjusted accordingly: Yes Anticipated Discharge Disposition: Home with Home Health Anticipated Discharge Timeframe: TBD
--- NOTE | 2020-06-22 20:23 | RADIOLOGY REPORT (SQ) ---
EXAM DESCRIPTION: MR BRAIN WITHOUT IV CONTRAST COMPLETED DATE/TME: 06/22/2020 19:00 CLINICAL HISTORY: 84 years, Female, recurrent fall COMPARISON: Head CT from the prior day TECHNIQUE: Noncontrast multiplanar multiecho MR imaging of the brain was performed. Images stored on PACS. LIMITATIONS: None. FINDINGS: There is no diffusion restriction. There is age-appropriate generalized atrophy. Moderate increased T2/FLAIR signal is noted within the periventricular and subcortical white matter, nonspecific but likely sequelae of chronic small vessel ischemic disease. There is no abnormal mass effect. There is no major vascular territorial infarct. Corpus callosum is thin but appears intact. There is an empty sella turcica. There is no Chiari malformation. There is no evidence of intracranial hemorrhage. The major vascular flow voids in the skull base appear maintained, implying patency. The calvarium is intact. There is 3 mm mucosal thickening within the inferior right maxillary sinus without air-fluid level. IMPRESSION: 1. Cortical atrophy and presumed chronic small vessel ischemic changes within the white matter. No acute intracranial abnormality is seen. 2. Mild right maxillary sinus because of thickening without air-fluid level, of questionable clinical significance. copyright 2010 [employer]- All Rights Reserved
[2020-06-22] MEDS: MIRTAZAPINE 15 MG TABLET PO SCH (22:40)
[2020-06-23] MEDS: HEPARIN SOD (PORCINE) 5,000 UNIT/ML 1 ML VIAL SUBCUT SCH ×3 (05:29→21:21)
[2020-06-23 06:11] LABS: ALBUMIN 3.1 g/dL (3.5-5.0); ALKALINE PHOSPHATASE 93 U/L (38-126); ASPARTATE AMINO TRANSFERASE 73 U/L (14-36); BILIRUBIN,DIRECT 0.1 mg/dL (0.0-0.4); BILIRUBIN,TOTAL 0.5 mg/dL (0.2-1.3); BLOOD UREA NITROGEN 14 mg/dL (7-20); CALCIUM 8.1 mg/dL (8.4-10.2); CARBON DIOXIDE 27 mmol/L (22-30); CHLORIDE 102 mmol/L (98-107); GLUCOSE 145 mg/dL (75-110); POTASSIUM 4.1 mmol/L (3.6-5.0); TOTAL PROTEIN 6.1 g/dL (6.3-8.2)
[2020-06-23 06:17] LABS: ANION GAP 4 (5-19)
[2020-06-23] MEDS: CHOLECALCIFEROL (D3) 1,000 UNIT (25 MCG) TABLET PO SCH (09:37)
[2020-06-23] MEDS: FAMOTIDINE 20 MG TABLET PO SCH ×2 (09:37→21:21)
[2020-06-23] MEDS: ASPIRIN 81 MG TABLET, ENT COATED PO SCH (09:37)
[2020-06-23] MEDS: ZINC SULFATE 220 MG CAPSULE PO SCH (09:37)
[2020-06-23] MEDS: ASCORBIC ACID 500 MG TABLET PO SCH ×2 (09:37→17:16)
[2020-06-23] MEDS: MEMANTINE HCL 10 MG TABLET PO SCH ×2 (09:37→17:15)
--- NOTE | 2020-06-23 13:54 | PDOC PROGRESS REPORT ---
Subjective Date:: 06/23/20 Subjective:: ELAINA STODDARD is a 84 year old female past medical history of dementia who w as recently diagnosed with COVID-19 infection brought to ED by her son after multiple falls on the day of admission. As per son who is present in the room and is the source of history as patient does not speak [place], he is stating that at baseline patient has dementia but is ambulating without any problem and feeding and bathing herself, this morning when patient's son woke up did not see her mother in the kitchen as usual ,went to look for her found her laying next to the bed, as per son patient was awake and alert did not seem to have sustained any trauma, but did not provide any information as patient has dementia, as per patient's son she may have had been laying on the floor for several hours, patient was picked up by son and later again was found on the floor again with no sign of trauma and patient was noted to be awake and alert, this happened a third time without any apparent cause as none of the falls were witnessed by the son, and patient could not provide any history why she was falling, patient was also noted to be more confused than her baseline however had not sustained any head trauma and had lost consciousness, patient was not noted to have had loss of bowel or bladder control or any tongue biting. As per son patient is pretty healthy and does not have any history of seizure disorder, history of CVA, CAD, arrhythmia or any history of previous falls. Patient was recently diagnosed with COVID-19 however appears to be asymptomatic save for mild cough and lower than normal appetite. On my encounter patient is comfortable resting in bed on room air is does not appear to be in any apparent distress, denies any shortness of breath, fever, chills, nausea, vomiting, diarrhea, constipation or any urinary symptoms. In ED patient was noted to have mild tachypnea and tachycardia otherwise saturating WNL on room air, CT head was negative for any acute abnormalities, and chest x-ray was also negative for any acute changes, EKG was negative and troponins undetectable. Patient was noted to have mildly elevated liver chemistries and CK repeat COVID-19 came back positive. Hospitalist was consulted for admission. D2 of hospital stay 06/22/20 Patient was seen and examined at bedside. She is off O2 and is not SOB. She is confused and agitated as can be expected from her dementia and new surroundings. 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 Besides dementia she has no prior significant PMH, no previous stroke, no known psychiatric condition. I have ordered an MRI brain. PT has yet to see her. D3 hospital stay 06/23/20. Patient was seen and examined at bedside. She is in bed comfortable. Not requiring O2. Still with some confusion from dementia. MRI head showed cortical atrophy and presumed chronic small vessel ischemic changes within the white matter. No acute intracranial abnormality seen. Awaiting PT assessment. Reason For Visit: FALL,COVID 19 Physical Exam Vital Signs: Temp Pulse Resp BP Pulse Ox 99.2 F 94 16 141/61 H 98 06/23/20 10:00 06/23/20 07:00 06/22/20 12:14 06/22/20 11:37 06/22/20 16:09 Intake & Output 06/22/20 06/23/20 06/24/20 06:59 06:59 06:59 Intake Total 2000 1165 Output Total 100 525 Balance 1900 640 Weight 44.1 kg 44.8 kg General appearance: PRESENT: no acute distress, cooperative Head exam: PRESENT: atraumatic, normocephalic Eye exam: PRESENT: EOMI, PERRLA Mouth exam: PRESENT: moist Neck exam: PRESENT: full ROM Respiratory exam: PRESENT: clear to auscultation precious, symmetrical, unlabored Cardiovascular exam: PRESENT: RRR, +S1, +S2 Pulses: PRESENT: +2 pedal pulses bilateral GI/Abdominal exam: PRESENT: normal bowel sounds, soft. ABSENT: rebound, tenderness Extremities exam: PRESENT: full ROM Musculoskeletal exam: PRESENT: full ROM Neurological exam: PRESENT: alert, awake, oriented to person, oriented to place, oriented to time, oriented to situation Psychiatric exam: PRESENT: normal mood Results Laboratory Results: 06/21/20 15:43 06/23/20 05:02 06/22/20 06/22/20 06/23/20 04:52 09:50 05:02 Sodium 133.4 L Potassium 4.1 Chloride 102 Carbon Dioxide 27 Anion Gap 4 L BUN 14 Creatinine 0.59 Est GFR ( Amer) > 60 Glucose 145 H Calcium 8.1 L Total Bilirubin 0.5 AST 73 H Alkaline Phosphatase 93 Total Protein 6.1 L Albumin 3.1 L Vitamin B12 498.0 Urine Osmolality 526 06/21/20 12 15:43 15:43 Creatine Kinase 430 H Troponin I < 0.012 Impressions: Chest X-Ray 06/21/20 14:31 IMPRESSION: Negative chest allowing for low lung volumes. Head CT 06/21/20 14:31 IMPRESSION: CHRONIC CHANGES OF ATROPHY AND MICROVASCULAR ISCHEMIA. NO ACUTE PROCESS. EVIDENCE OF ACUTE STROKE: NO. Hip X-Ray 06/21/20 14:31 IMPRESSION: Prior total left arthroplasty. Degenerative changes in the right hip with joint space narrowing and subchondral sclerosis. No acute fracture or dislocation. Knee X-Ray 06/21/20 14:31 IMPRESSION: Tricompartmental osteoarthritis. Head MRI 06/22/20 00:00 IMPRESSION: 1. Cortical atrophy and presumed chronic small vessel ischemic changes within the white matter. No acute intracranial abnormality is seen. 2. Mild right maxillary sinus because of thickening without air-fluid level, of questionable clinical significance. copyright 2010 [employer]- All Rights Reserved Assessment and Plan - Diagnosis (1) Recurrent falls Is this a current diagnosis for this admission?: Yes Plan: - has had 3 episodes of unwitnessed presumed falls - has dementia but no prior hx of stroke, seizure episodes - CT head negative and CBC and CMP are normal - tele review no signs of bradycardia or arrhythmia that will cause her to develop syncope - MRI brain cortical atrophy and presumed chronic small vessel ischemic changes within the white matter. No acute intracranial abnormality seen. - B12 and RPR both normal - PT/OT ordered to assess gait and muscle strength (2) COVID-19 Is this a current diagnosis for this admission?: Yes Plan: Patient was recently diagnosed with COVID-19 infection, likely source her son. Repeat COVID-19 serology is still positive. Patient is asymptomatic except for mild productive cough. SPO2 WNL on RA, CXR no acute abnormalities. CBC WNL except for lymphopenia and bandemia. Mildly elevated D-dimer Mildly elevated liver chemistries. Elevated CRP. as needed DuoNeb, flutter valve and pulmonary toileting. No need for empiric IV antibiotics, steroids or therapeutic dose anticoagulation at this point. If patient becomes more symptomatic will consider above-mentioned treatments. (3) Dementia Qualifiers: Dementia type: Alzheimer's disease Alzheimer's disease onset: unspecified onset Dementia behavioral disturbance: without behavioral disturbance Qualified Code(s): G30.9 - Alzheimer's disease, unspecified; F02.80 - Dementia in other diseases classified elsewhere without behavioral disturbance Is this a current diagnosis for this admission?: Yes Plan: Home medications memantine. Resume home meds. Supportive measures. Monitor for sundowning. would limit sedating meds and avoid restraints as this can worsen her agitation. - Time Time Spent with patient: 25-34 minutes Medications reviewed and adjusted accordingly: Yes Anticipated Discharge Disposition: Home with Home Health Anticipated Discharge Timeframe: TBD
[2020-06-23] MEDS: MIRTAZAPINE 15 MG TABLET PO SCH (21:19)
[2020-06-23 22:48] LABS: D-DIMER 0.73 ug/mL (0.00-0.50)
[2020-06-24] MEDS: TRAZODONE HCL 50 MG TABLET PO SCH ×2 (03:39→21:48)
[2020-06-24 06:03] LABS: ALBUMIN 3.7 g/dL (3.5-5.0); ALKALINE PHOSPHATASE 100 U/L (38-126); ANION GAP 10 (5-19); ASPARTATE AMINO TRANSFERASE 93 U/L (14-36); BILIRUBIN,DIRECT 0.2 mg/dL (0.0-0.4); BILIRUBIN,TOTAL 0.6 mg/dL (0.2-1.3); BLOOD UREA NITROGEN 21 mg/dL (7-20); CALCIUM 8.5 mg/dL (8.4-10.2); CARBON DIOXIDE 24 mmol/L (22-30); CHLORIDE 102 mmol/L (98-107); GLUCOSE 136 mg/dL (75-110); POTASSIUM 4.2 mmol/L (3.6-5.0); TOTAL PROTEIN 6.8 g/dL (6.3-8.2)
[2020-06-24] MEDS: HEPARIN SOD (PORCINE) 5,000 UNIT/ML 1 ML VIAL SUBCUT SCH ×3 (06:17→21:49)
[2020-06-24] MEDS: ASCORBIC ACID 500 MG TABLET PO SCH ×2 (11:23→20:23)
[2020-06-24] MEDS: MEMANTINE HCL 10 MG TABLET PO SCH ×2 (11:23→20:22)
[2020-06-24] MEDS: CHOLECALCIFEROL (D3) 1,000 UNIT (25 MCG) TABLET PO SCH (11:23)
[2020-06-24] MEDS: FAMOTIDINE 20 MG TABLET PO SCH ×2 (11:23→21:48)
[2020-06-24] MEDS: ASPIRIN 81 MG TABLET, ENT COATED PO SCH (11:24)
[2020-06-24] MEDS: ZINC SULFATE 220 MG CAPSULE PO SCH (11:24)
--- NOTE | 2020-06-24 11:33 | PDOC PROGRESS REPORT ---
Subjective Date:: 06/24/20 Subjective:: ELAINA STODDARD is a 84 year old female past medical history of dementia who w as recently diagnosed with COVID-19 infection brought to ED by her son after multiple falls on the day of admission. As per son who is present in the room and is the source of history as patient does not speak [place], he is stating that at baseline patient has dementia but is ambulating without any problem and feeding and bathing herself, this morning when patient's son woke up did not see her mother in the kitchen as usual ,went to look for her found her laying next to the bed, as per son patient was awake and alert did not seem to have sustained any trauma, but did not provide any information as patient has dementia, as per patient's son she may have had been laying on the floor for several hours, patient was picked up by son and later again was found on the floor again with no sign of trauma and patient was noted to be awake and alert, this happened a third time without any apparent cause as none of the falls were witnessed by the son, and patient could not provide any history why she was falling, patient was also noted to be more confused than her baseline however had not sustained any head trauma and had lost consciousness, patient was not noted to have had loss of bowel or bladder control or any tongue biting. As per son patient is pretty healthy and does not have any history of seizure disorder, history of CVA, CAD, arrhythmia or any history of previous falls. Patient was recently diagnosed with COVID-19 however appears to be asymptomatic save for mild cough and lower than normal appetite. On my encounter patient is comfortable resting in bed on room air is does not appear to be in any apparent distress, denies any shortness of breath, fever, chills, nausea, vomiting, diarrhea, constipation or any urinary symptoms. In ED patient was noted to have mild tachypnea and tachycardia otherwise saturating WNL on room air, CT head was negative for any acute abnormalities, and chest x-ray was also negative for any acute changes, EKG was negative and troponins undetectable. Patient was noted to have mildly elevated liver chemistries and CK repeat COVID-19 came back positive. Hospitalist was consulted for admission. D2 of hospital stay 06/22/20 Patient was seen and examined at bedside. She is off O2 and is not SOB. She is confused and agitated as can be expected from her dementia and new surroundings. 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 Besides dementia she has no prior significant PMH, no previous stroke, no known psychiatric condition. I have ordered an MRI brain. PT has yet to see her. D3 hospital stay 06/23/20. Patient was seen and examined at bedside. She is in bed comfortable. Not requiring O2. Still with some confusion from dementia. MRI head showed cortical atrophy and presumed chronic small vessel ischemic changes within the white matter. No acute intracranial abnormality seen. Awaiting PT assessment. D4 hospital stay 06/24/20. Patient was seen and examined at bedside. According to the nurse she was found on the floor again this morning however they are not sure if she fell or slid down the bed. PT to see her today. But otherwise she is stable. Reason For Visit: FALL,COVID 19 Physical Exam Vital Signs: Temp Pulse Resp BP Pulse Ox 98.2 F 93 18 139/61 H 99 06/24/20 04:01 06/24/20 04:01 06/24/20 04:01 06/24/20 04:01 06/24/20 04:01 Intake & Output 06/23/20 06/24/20 06/25/20 06:59 06:59 06:59 Intake Total 1165 Output Total 525 Balance 640 Weight 44.8 kg 45 kg General appearance: PRESENT: no acute distress, cooperative Head exam: PRESENT: atraumatic Eye exam: PRESENT: EOMI, PERRLA Neck exam: PRESENT: full ROM Respiratory exam: PRESENT: clear to auscultation precious, symmetrical, unlabored Cardiovascular exam: PRESENT: RRR, +S1, +S2 Pulses: PRESENT: +2 pedal pulses bilateral GI/Abdominal exam: PRESENT: normal bowel sounds, soft. ABSENT: rebound, tender ness Extremities exam: PRESENT: full ROM Musculoskeletal exam: PRESENT: full ROM Neurological exam: PRESENT: alert, awake, other - has dementia. ABSENT: oriented to person, oriented to place, oriented to time, oriented to situation Psychiatric exam: PRESENT: normal mood Skin exam: PRESENT: normal color Results Laboratory Results: 06/21/20 15:43 06/24/20 05:04 06/24/20 05:04 Sodium 135.7 L Potassium 4.2 Chloride 102 Carbon Dioxide 24 Anion Gap 10 BUN 21 H Creatinine 0.58 Est GFR ( Amer) > 60 Glucose 136 H Calcium 8.5 Total Bilirubin 0.6 AST 93 H Alkaline Phosphatase 100 Total Protein 6.8 Albumin 3.7 06/21/20 06/21/20 15:43 15:43 Creatine Kinase 430 H Troponin I < 0.012 Impressions: Chest X-Ray 06/21/20 14:31 IMPRESSION: Negative chest allowing for low lung volumes. Head CT 06/21/20 14:31 IMPRESSION: CHRONIC CHANGES OF ATROPHY AND MICROVASCULAR ISCHEMIA. NO ACUTE PROCESS. EVIDENCE OF ACUTE STROKE: NO. Hip X-Ray 06/21/20 14:31 IMPRESSION: Prior total left arthroplasty. Degenerative changes in the right hip with joint space narrowing and subchondral sclerosis. No acute fracture or dislocation. Knee X-Ray 06/21/20 14:31 IMPRESSION: Tricompartmental osteoarthritis. Head MRI 06/22/20 00:00 IMPRESSION: 1. Cortical atrophy and presumed chronic small vessel ischemic changes within the white matter. No acute intracranial abnormality is seen. 2. Mild right maxillary sinus because of thickening without air-fluid level, of questionable clinical significance. copyright 2011 [employer]- All Rights Reserved Assessment and Plan - Diagnosis (1) Recurrent falls Is this a current diagnosis for this admission?: Yes Plan: - has had 3 episodes of unwitnessed presumed falls - has dementia but no prior hx of stroke, seizure episodes - CT head negative and CBC and CMP are normal - tele review no signs of bradycardia or arrhythmia that will cause her to develop syncope - MRI brain cortical atrophy and presumed chronic small vessel ischemic changes within the white matter. No acute intracranial abnormality seen. - B12 and RPR both normal - PT/OT ordered to assess gait and muscle strength (2) COVID-19 Is this a current diagnosis for this admission?: Yes Plan: Patient was recently diagnosed with COVID-19 infection, likely source her son. Repeat COVID-19 serology is still positive. Patient is asymptomatic except for mild productive cough. SPO2 WNL on RA, CXR no acute abnormalities. CBC WNL except for lymphopenia and bandemia. Mildly elevated D-dimer Mildly elevated liver chemistries. Elevated CRP. as needed DuoNeb, flutter valve and pulmonary toileting. No need for empiric IV antibiotics, steroids or therapeutic dose anticoagulation at this point. If patient becomes more symptomatic will consider above-mentioned treatments. (3) Dementia Qualifiers: Dementia type: Alzheimer's disease Alzheimer's disease onset: unspecified onset Dementia behavioral disturbance: without behavioral disturbance Qualified Code(s): G30.9 - Alzheimer's disease, unspecified; F02.80 - Dementia in other diseases classified elsewhere without behavioral disturbance Is this a current diagnosis for this admission?: Yes Plan: Home medications memantine. Resume home meds. Supportive measures. Monitor for sundowning. would limit sedating meds and avoid restraints as this can worsen her agitation. Home health - Plan Summary Summary: Discharge once PT has assessed her. Home health PT/OT - Time Time Spent with patient: 15-24 minutes Medications reviewed and adjusted accordingly: Yes Anticipated Discharge Disposition: Home with Home Health Anticipated Discharge Timeframe: within 24 hours
[2020-06-24] MEDS: MIRTAZAPINE 15 MG TABLET PO SCH (21:48)
[2020-06-25] MEDS: HEPARIN SOD (PORCINE) 5,000 UNIT/ML 1 ML VIAL SUBCUT SCH ×2 (05:47→13:22)
[2020-06-25 06:05] LABS: ABSOLUTE LYMPHOCYTES (AUTO) 1.5 10^3/uL (0.5-4.7); ABSOLUTE MONOCYTES (AUTO) 0.6 10^3/uL (0.1-1.4); ABSOLUTE NEUT (AUTO) 2.8 10^3/uL (1.7-8.2); BASOPHILS % (AUTO) 0.4 % (0-2); EOSINOPHILS % (AUTO) 0.1 % (0-6); HEMATOCRIT 35.9 % (36.0-47.0); HEMOGLOBIN 12.4 g/dL (12.0-15.5); LYMPHOCYTES % (AUTO) 31.5 % (13-45); MEAN CORPUSCULAR HEMOGLOBIN 30.6 pg (27.0-33.4); MEAN CORPUSCULAR HGB CONC 34.6 g/dL (32.0-36.0); MEAN CORPUSCULAR VOLUME 89 fl (80-97); MONOCYTES % (AUTO) 11.6 % (3-13); PLATELET COUNT 156 10^3/uL (150-450); RED BLOOD COUNT 4.05 10^6/uL (3.72-5.28); RED CELL DISTRIBUTION WIDTH 12.9 % (11.5-14.0); SEGMENTED NEUTROPHILS % (AUTO) 56.4 % (42-78); TOTAL CELLS COUNTED % (AUTO) 100 %; WHITE BLOOD COUNT 4.9 10^3/uL (4.0-10.5)
[2020-06-25 06:26] LABS: ALBUMIN 3.5 g/dL (3.5-5.0); ALKALINE PHOSPHATASE 92 U/L (38-126); ANION GAP 6 (5-19); ASPARTATE AMINO TRANSFERASE 100 U/L (14-36); BILIRUBIN,DIRECT 0.2 mg/dL (0.0-0.4); BILIRUBIN,TOTAL 0.6 mg/dL (0.2-1.3); BLOOD UREA NITROGEN 16 mg/dL (7-20); CALCIUM 8.3 mg/dL (8.4-10.2); CARBON DIOXIDE 27 mmol/L (22-30); CHLORIDE 102 mmol/L (98-107); GLUCOSE 147 mg/dL (75-110); POTASSIUM 4.1 mmol/L (3.6-5.0); TOTAL PROTEIN 6.5 g/dL (6.3-8.2)
[2020-06-25] MEDS: ASCORBIC ACID 500 MG TABLET PO SCH (11:44)
[2020-06-25] MEDS: FAMOTIDINE 20 MG TABLET PO SCH (11:44)
[2020-06-25] MEDS: MEMANTINE HCL 10 MG TABLET PO SCH (11:44)
[2020-06-25] MEDS: ASPIRIN 81 MG TABLET, ENT COATED PO SCH (11:44)
[2020-06-25] MEDS: ZINC SULFATE 220 MG CAPSULE PO SCH (11:45)
[2020-06-25] MEDS: CHOLECALCIFEROL (D3) 1,000 UNIT (25 MCG) TABLET PO SCH (11:45)
--- NOTE | 2020-06-25 13:59 | RADIOLOGY REPORT (SQ) ---
EXAM DESCRIPTION: CT HEAD WITHOUT IMAGES COMPLETED DATE/TIME: 06/25/2020 8:00 am REASON FOR STUDY: unwitnessed fall R29.6 REPEATED FALLS J15.5 PNEUMONIA DUE TO ESCHERICHIA COLI COMPARISON: None. TECHNIQUE: Axial images acquired through the brain without intravenous contrast. Images reviewed wi th bone, brain and subdural windows. Additional sagittal and coronal reconstructions were generated. Images stored on PACS. All CT scanners at this facility use dose modulation, iterative reconstruction, and/or weight based d osing when appropriate to reduce radiation dose to as low as reasonably achievable (ALARA). [facility]: Dose Right [facility]: CareDose [facility]: Dose Right [facility]: Teradose 4D [facility]: Smart CirclePublish RADIATION DOSE: CT Rad equipment meets quality standard of care and radiation dose reduction techniq ues were employed. CTDIvol: 49.0 - 50.1 mGy. DLP: 2045 mGy-cm. mGy. LIMITATIONS: None. FINDINGS: VENTRICLES: Normal size and contour. CEREBRUM: No masses. No hemorrhage. No midline shift. No evidence for acute infarction. Normal gra y-white matter differentiation. Moderate patchy periventricular and deep white matter hypodense atte nuation consistent with moderate chronic small vessel ischemic change. There is intracranial atheros clerosis. CEREBELLUM: No masses. No hemorrhage. No alteration of density. No evidence for acute infarction. EXTRAAXIAL SPACES: No fluid collections. No masses. ORBITS AND GLOBE: No intra- or extraconal masses. Normal contour of globe without masses. CALVARIUM: No fracture. PARANASAL SINUSES: Minimal mucosal thickening/ layering fluid in the right maxillary and sphenoid sin uses consistent with acute sinusitis. Remaining paranasal sinuses and mastoid air cells are clear. SOFT TISSUES: No mass or hematoma. OTHER: No other significant finding. IMPRESSION: 1. No acute intracranial hemorrhage, mass, or evidence of acute territorial infarct. 2. Mild acute right maxillary and sphenoid sinusitis. EVIDENCE OF ACUTE STROKE: NO. COMMENT: Quality ID # [id number]: Final reports with documentation of one or more dose reduction techniques (e.g., Automated exposure control, adjustment of the mA and/or kV according to patient size, use of iterative reconstruction technique) TECHNICAL DOCUMENTATION: JOB ID: [id number] 2010 [employer]- All Rights Reserved Reading location - IP/workstation name: [email or web address]
[2020-06-25 14:11] VITALS: BP 157/71
--- NOTE | 2020-06-26 20:52 | PDOC DISCHARGE SUMMARY ---
Impression - Admit/DC Date/PCP Admission Date/Primary Care Provider: 06/21/20 21:44 Discharge Date: 06/26/20 - Discharge Diagnosis (1) Recurrent falls Is this a current diagnosis for this admission?: Yes (2) COVID-19 Is this a current diagnosis for this admission?: Yes (3) Dementia Is this a current diagnosis for this admission?: Yes - Assessment Summary: (1) Recurrent falls Is this a current diagnosis for this admission?: Yes Plan: - has had 3 episodes of unwitnessed presumed falls - has dementia but no prior hx of stroke, seizure episodes - CT head negative and CBC and CMP are normal - tele review no signs of bradycardia or arrhythmia that will cause her to develop syncope - MRI brain cortical atrophy and presumed chronic small vessel ischemic changes within the white matter. No acute intracranial abnormality seen. - B12 and RPR both normal - PT/OT ordered to assess gait and muscle strength (2) COVID-19 Is this a current diagnosis for this admission?: Yes Plan: Patient was recently diagnosed with COVID-19 infection, likely source her son. Repeat COVID-19 serology is still positive. Patient is asymptomatic except for mild productive cough. SPO2 WNL on RA, CXR no acute abnormalities. CBC WNL except for lymphopenia and bandemia. Mildly elevated D-dimer Mildly elevated liver chemistries. Elevated CRP. as needed DuoNeb, flutter valve and pulmonary toileting. No need for empiric IV antibiotics, steroids or therapeutic dose anticoagulation at this point. If patient becomes more symptomatic will consider above-mentioned treatments. (3) Dementia Qualifiers: Dementia type: Alzheimer's disease Alzheimer's disease onset: unspecified onset Dementia behavioral disturbance: without behavioral disturbance Qualified Code(s): G30.9 - Alzheimer's disease, unspecified; F02.80 - Dementia in other diseases classified elsewhere without behavioral disturbance Is this a current diagnosis for this admission?: Yes Plan: Home medications memantine. Resume home meds. Supportive measures. Monitor for sundowning. would limit sedating meds and avoid restraints as this can worsen her agitation. Home health - Additional Information Discharge Diet: As Tolerated Discharge Activity: Activity As Tolerated Referrals: DOLLY LÓPEZ MD [EMERITUS] - 07/03/20 10:00 am Prescriptions: Ascorbic Acid [Vitamin C 500 mg Tablet] 500 mg PO DAILY 30 Days #30 tablet Cholecalciferol (Vitamin D3) [Vitamin D3 1000 Unit Tablet] 2,000 unit PO DAILY 30 Days #30 tablet Zinc Sulfate [Zinc-220 Capsule] 220 mg PO DAILY 30 Days #30 capsule Home Medications: Memantine HCl 10 mg PO BID 06/21/20 Mirtazapine 7.5 mg PO QHS 06/21/20 Ascorbic Acid [Vitamin C 500 mg Tablet] 500 mg PO DAILY 30 Days #30 tablet 06/25/20 Cholecalciferol (Vitamin D3) [Vitamin D3 1000 Unit Tablet] 2,000 unit PO DAILY 30 Days #30 tablet 06/25/20 Zinc Sulfate [Zinc-220 Capsule] 220 mg PO DAILY 30 Days #30 capsule 06/25/20 History of Present Illiness History of Present Illness: ELAINA STODDARD is a 84 year old female, past medical history of dementia who was recently diagnosed with COVID-19 infection brought to ED by her son after multiple falls on the day of admission. As per son who is present in the room and is the source of history as patient does not speak Frisian, he is stating that at baseline patient has dementia but is ambulating without any problem and feeding and bathing herself, this morning when patient's son woke up did not see her mother in the kitchen as usual ,went to look for her found her laying next to the bed, as per son patient was awake and alert did not seem to have sustained any trauma, but did not provide any information as patient has dementia, as per patient's son she may have had been laying on the floor for several hours, patient was picked up by son and later again was found on the floor again with no sign of trauma and patient was noted to be awake and alert, this happened a third time without any apparent cause as none of the falls were witnessed by the son, and patient could not provide any history why she was falling, patient was also noted to be more confused than her baseline however had not sustained any head trauma and had lost consciousness, patient was not noted to have had loss of bowel or bladder control or any tongue biting. As per son patient is pretty healthy and does not have any history of seizure disorder, history of CVA, CAD, arrhythmia or any history of previous falls. Patient was recently diagnosed with COVID-19 however appears to be asymptomatic save for mild cough and lower than normal appetite. On my encounter patient is comfortable resting in bed on room air is does not appear to be in any apparent distress, denies any shortness of breath, fever, chills, nausea, vomiting, diarrhea, constipation or any urinary symptoms. In ED patient was noted to have mild tachypnea and tachycardia otherwise saturating WNL on room air, CT head was negative for any acute abnormalities, and chest x-ray was also negative for any acute changes, EKG was negative and troponins undetectable. Patient was noted to have mildly elevated liver chemistries and CK repeat COVID-19 came back positive. Hospitalist was consulted for admission. Hospital Course Hospital Course: D2 of hospital stay 06/22/20 Patient was seen and examined at bedside. She is off O2 and is not SOB. She is confused and agitated as can be expected from her dementia and new surroundings. I was able to speak to her son who confirmed repairer v[employer] H&P. Besides dementia she has no prior significant PMH, no previous stroke, no known psychiatric condition. I have ordered an MRI brain. PT has yet to see her. D3 hospital stay 06/23/20. Patient was seen and examined at bedside. She is in bed comfortable. Not requiring O2. Still with some confusion from dementia. MRI head showed cortical atrophy and presumed chronic small vessel ischemic changes within the white matter. No acute intracranial abnormality seen. Awaiting PT assessment. D4 hospital stay 06/24/20. Patient was seen and examined at bedside. According to the nurse she was found on the floor again this morning however they are not sure if she fell or slid down the bed. PT to see her today. But otherwise she is stable. PT assessed her and recommended home PT. Son was advised that she will need to be watched more closely and would likely need incerased home support to stay with her. CT head negative. Patient was discharged and they were advised to follow up with PCP. Physical Exam Vital Signs: Temp Pulse Resp BP Pulse Ox 98.0 F 91 16 157/71 H 98 06/25/20 14:09 06/25/20 14:09 06/25/20 14:09 06/25/20 14:09 06/25/20 14:09 Intake & Output 06/25/20 06/26/20 06/27/20 06:59 06:59 06:59 Intake Total 767 Balance 767 Weight 46.9 kg General appearance: PRESENT: no acute distress, cooperative Head exam: PRESENT: atraumatic, normocephalic Eye exam: PRESENT: EOMI, PERRLA Mouth exam: PRESENT: moist Neck exam: PRESENT: full ROM Respiratory exam: PRESENT: clear to auscultation precious, symmetrical, unlabored Cardiovascular exam: PRESENT: RRR, +S1, +S2 GI/Abdominal exam: PRESENT: normal bowel sounds, soft. ABSENT: rebound, tenderness Extremities exam: PRESENT: full ROM Musculoskeletal exam: PRESENT: full ROM Neurological exam: PRESENT: alert, awake, oriented to person, oriented to place, oriented to time, oriented to situation Psychiatric exam: PRESENT: normal mood Skin exam: PRESENT: normal color Results Laboratory Results: WBC 4.9 10^3/uL (4.0-10.5) 06/25/20 05:50 RBC 4.05 10^6/uL (3.72-5.28) 06/25/20 05:50 Hgb 12.4 g/dL (12.0-15.5) 06/25/20 05:50 Hct 35.9 % (36.0-47.0) L 06/25/20 05:50 MCV 89 fl (80-97) 06/25/20 05:50 MCH 30.6 pg (27.0-33.4) 06/25/20 05:50 MCHC 34.6 g/dL (32.0-36.0) 06/25/20 05:50 RDW 12.9 % (11.5-14.0) 06/25/20 05:50 Plt Count 156 10^3/uL (150-450) 06/25/20 05:50 Lymph % (Auto) 31.5 % (13-45) 06/25/20 05:50 [place] % (Auto) 11.6 % (3-13) 06/25/20 05:50 Eos % (Auto) 0.1 % (0-6) 06/25/20 05:50 Baso % (Auto) 0.4 % (0-2) 06/25/20 05:50 Absolute Neuts (auto) 2.8 10^3/uL (1.7-8.2) 06/25/20 05:50 Absolute Lymphs (auto) 1.5 10^3/uL (0.5-4.7) 06/25/20 05:50 Absolute Monos (auto) 0.6 10^3/uL (0.1-1.4) 06/25/20 05:50 Absolute Eos (auto) 0.0 10^3/uL (0.0-0.6) 06/25/20 05:50 Absolute Basos (auto) 0.0 10^3/uL (0.0-0.2) 06/25/20 05:50 Total Counted 100 06/21/20 15:43 Seg Neutrophils % 56.4 % (42-78) 06/25/20 05:50 Seg Neuts % (Manual) 86 % (42-78) H 06/21/20 15:43 Band Neutrophils % 2 % (3-5) L 06/21/20 15:43 Lymphocytes % (Manual) 3 % (13-45) L 06/21/20 15:43 Monocytes % (Manual) 9 % (3-13) 06/21/20 15:43 Eosinophils % (Manual) 0 % (0-6) 06/21/20 15:43 Basophils % (Manual) 0 % (0-2) 06/21/20 15:43 Abs Neuts (Manual) 7.7 10^3/uL (1.7-8.2) 06/21/20 15:43 Abs Lymphs (Manual) 0.3 10^3/uL (0.5-4.7) L 06/21/20 15:43 Abs Monocytes (Manual) 0.8 10^3/uL (0.1-1.4) 06/21/20 15:43 Absolute Eos (Manual) 0.0 10^3/uL (0.0-0.6) 06/21/20 15:43 Abs Basophils (Manual) 0.0 10^3/uL (0.0-0.2) 06/21/20 15:43 Platelet Comment ADEQUATE 06/21/20 15:43 RBC Morph Comment NORMO-CYTIC/CHROMIC 06/21/20 15:43 PT 12.6 SEC (11.4-15.4) 06/21/20 15:43 INR 0.92 06/21/20 15:43 APTT 30.3 SEC (23.5-35.8) 06/21/20 15:43 Fibrinogen 412 mg/dL (209-497) 06/23/20 22:12 D-Dimer 0.73 ug/mL (0.00-0.50) H 06/23/20 22:12 Sodium 135.1 mmol/L (137-145) L 06/25/20 05:50 Potassium 4.1 mmol/L (3.6-5.0) 06/25/20 05:50 Chloride 102 mmol/L (98-107) 06/25/20 05:50 Carbon Dioxide 27 mmol/L (22-30) 06/25/20 05:50 Anion Gap 6 (5-19) 06/25/20 05:50 BUN 16 mg/dL (7-20) 06/25/20 05:50 Creatinine 0.63 mg/dL (0.52-1.25) 06/25/20 05:50 Est GFR ( Amer) > 60 (>60) 06/25/20 05:50 Est GFR (MDRD) Non-Af > 60 (>60) 06/25/20 05:50 Glucose 147 mg/dL (75-110) H 06/25/20 05:50 Serum Osmolality 277 mOsm/kg (275-301) 06/22/20 04:52 Calcium 8.3 mg/dL (8.4-10.2) L 06/25/20 05:50 Total Bilirubin 0.6 mg/dL (0.2-1.3) 06/25/20 05:50 Direct Bilirubin 0.2 mg/dL (0.0-0.4) 06/25/20 05:50 Neonat Total Bilirubin Not Reportable 06/25/20 05:50 Neonat Direct Bilirubin Not Reportable 06/25/20 05:50 Neonat Indirect Bili Not Reportable 06/25/20 05:50 AST 100 U/L (14-36) H 06/25/20 05:50 ALT 69 U/L (<35) H 06/25/20 05:50 Alkaline Phosphatase 92 U/L (38-126) 06/25/20 05:50 Lactate Dehydrogenase 248 U/L (120-246) H 06/21/20 22:50 Creatine Kinase 430 U/L (30-135) H 06/21/20 15:43 Troponin I < 0.012 ng/mL 06/21/20 15:43 C-Reactive Protein 17.6 mg/L (<10.0) H 06/21/20 22:50 Total Protein 6.5 g/dL (6.3-8.2) 06/25/20 05:50 Albumin 3.5 g/dL (3.5-5.0) 06/25/20 05:50 Vitamin B12 498.0 pg/mL (239-931) 06/22/20 04:52 Urine Color YELLOW 06/21/20 16:10 Urine Appearance SLIGHTLY-CLOUDY 06/21/20 16:10 Urine pH 7.0 (5.0-9.0) 06/21/20 16:10 Ur Specific [place] 1.020 06/21/20 16:10 Urine Protein 100 mg/dL (NEGATIVE) H 06/21/20 16:10 Urine Glucose (UA) NEGATIVE mg/dL (NEGATIVE) 06/21/20 16:10 Urine Ketones 20 mg/dL (NEGATIVE) H 06/21/20 16:10 Urine Blood NEGATIVE (NEGATIVE) 06/21/20 16:10 Urine Nitrite NEGATIVE (NEGATIVE) 06/21/20 16:10 Urine Bilirubin NEGATIVE (NEGATIVE) 06/21/20 16:10 Urine Urobilinogen NEGATIVE mg/dL (<2.0) 06/21/20 16:10 Ur Leukocyte Esterase NEGATIVE (NEGATIVE) 06/21/20 16:10 Urine WBC (Auto) 1 /HPF 06/21/20 16:10 Urine RBC (Auto) 12 /HPF 06/21/20 16:10 U Hyaline Cast (Auto) 3 /LPF 06/21/20 16:10 Urine Mucus (Auto) MOD /LPF 06/21/20 16:10 Urine Osmolality 526 mOsm/kg (300-900) 06/22/20 09:50 Urine Sodium 165 mmol/L (30-90) H 06/22/20 09:50 Urine Ascorbic Acid 40 (NEGATIVE) H 06/21/20 16:10 RPR NONREACTIVE (NONREACTIVE) 06/22/20 04:52 Influenza A (RT-PCR) NEGATIVE (NEGATIVE) 06/21/20 17:05 Influenza B (RT-PCR) NEGATIVE (NEGATIVE) 06/21/20 17:05 RSV (RT-PCR) NEGATIVE (NEGATIVE) 06/21/20 17:05 SARS-CoV-2 Rap RNA(RT-PCR) POSITIVE (NEGATIVE) H 06/21/20 17:05 06/21/20 15:43 Troponin I < 0.012 Impressions: Chest X-Ray 06/21/20 14:31 IMPRESSION: Negative chest allowing for low lung volumes. Head CT 06/21/20 14:31 IMPRESSION: CHRONIC CHANGES OF ATROPHY AND MICROVASCULAR ISCHEMIA. NO ACUTE PROCESS. EVIDENCE OF ACUTE STROKE: NO. Hip X-Ray 06/21/20 14:31 IMPRESSION: Prior total left arthroplasty. Degenerative changes in the right hip with joint space narrowing and subchondral sclerosis. No acute fracture or dislocation. Knee X-Ray 06/21/20 14:31 IMPRESSION: Tricompartmental osteoarthritis. Head MRI 06/22/20 00:00 IMPRESSION: 1. Cortical atrophy and presumed chronic small vessel ischemic changes within the white matter. No acute intracranial abnormality is seen. 2. Mild right maxillary sinus because of thickening without air-fluid level, of questionable clinical significance. copyright 2010 [employer]- All Rights Reserved Head CT 06/24/20 00:00 IMPRESSION: 1. No acute intracranial hemorrhage, mass, or evidence of acute territorial infarct. 2. Mild acute right maxillary and sphenoid sinusitis. EVIDENCE OF ACUTE STROKE: NO. Plan Goals: - ff.up with PCP - fall precautions Time Spent: Less than 30 Minutes Stroke Is this a Stroke Patient?: No Acute Heart Failure Is this a Heart Failure Patient?: No
== END 2020-06-25 17:08 | disposition home or self-care (01) ==
LOC: ER 14:22 → EH 21:44 → 3N 06-22 00:15
PROVIDERS: ADMIT Internal Medicine; ATTEND Internal Medicine
DX: U07.1 COVID-19 (principal); R29.6 Repeated falls; G30.9 Alzheimer's disease, unspecified; F02.80 Dementia in other diseases classified elsewhere, unspecified severity, without behavioral disturbance, psychotic disturbance, mood disturbance, and anxiety; R06.82 Tachypnea, not elsewhere classified; R00.0 Tachycardia, unspecified; R41.0 Disorientation, unspecified; W19.XXXA Unspecified fall, initial encounter; Z87.891 Personal history of nicotine dependence; Z79.899 Other long term (current) drug therapy
CPT/HCPCS: 93005; 99285; 96360; 96361; 36415 ×5; 82607; 82550; 83615; 83930; 83935 ×2; 84300 ×2; 85025 ×2; 85384 ×2; 85610; 85730; 0241U ×4; 86140; 86592; 80053 ×5; 81001; 84484; 85379 ×2; 70551; 71045; 73564; 73522; 70450 ×2; 93010; 97161; G0378 ×5; A9270 ×25; J1644 ×5; J1630; J3490 ×6; J2060; J7120; C9803